=== PATIENT | female | born 1995 | race Caucasian/White ===

== ENCOUNTER 2016-04-11 | Emergency (ER) | payer MEDICAID | END 2016-04-11 18:06 | disposition left against medical advice (07) | DX: Z53.21 Procedure and treatment not carried out due to patient leaving prior to being seen by health care provider (principal) ==

== ENCOUNTER 2016-04-25 07:18 | Emergency (ER) | payer SELFPAY ==
[2016-04-25] MEDS ORDERED: ACYCLOVIR 200 MG CAPSULE PO STA (07:56)
[2016-04-25] MEDS ORDERED: IBUPROFEN 600 MG TABLET PO STA (07:56)
[2016-04-25] MEDS ORDERED: ACETAMINOPHEN 325 MG TABLET PO STA (07:56)
[2016-04-25] MEDS ORDERED: ACYCLOVIR 200 MG CAPSULE PO ONE (08:08)
[2016-04-25] MEDS ORDERED: IBUPROFEN 600 MG TABLET PO ONE (08:08)
[2016-04-25] MEDS ORDERED: ACETAMINOPHEN 325 MG TABLET PO ONE (08:09)
[2016-04-25] MEDS ORDERED: LIDOCAINE OINTMENT 5% 35.44 GM TUBE TOP STA (08:12)
[2016-04-25] MEDS ORDERED: LIDOCAINE OINTMENT 5% 35.44 GM TUBE ONE (08:16)
== END 2016-04-25 08:31 | disposition home or self-care (01) ==
DX: A60.04 Herpesviral vulvovaginitis (principal); R23.8 Other skin changes
CPT/HCPCS: 87210; 87491; 87529; 87591; 99283; A9270

== ENCOUNTER 2016-04-28 21:36 | Emergency (ER) | payer SELFPAY ==
[2016-04-28 22:15] LABS: BILIRUBIN,URINE NEGATIVE (NEGATIVE)
[2016-04-28 22:16] LABS: UA CHARGE (STRIP ONLY) YES; UR CULTURE IF IND NOT INDICATED
[2016-04-28 22:26] LABS: HCG UR QUAL NEGATIVE
--- NOTE | 2016-04-28 23:00 | ED Physician Documentation ---
PD HPI FEMALE - Stated complaint Stated Complaint: FEMALE - Chief complaint Chief Complaint: Abd Pain - History obtained from History obtained from: Patient - History of Present Illness Timing - onset: How many days ago (3) Timing - details: Constant Associated symptoms: Back pain, Vaginal pain, Genital sore/lesion Contributing factors: Sexually active Similar symptoms before: Has not had sx before Recently seen: Emergency Dept (3 days ago for same.) - Treatment prior to arrival Treatment prior to arrival: Acyclovir, Naproxen, and Benzocaine without relief. - Additional information Additional information: The patient is a 20-year-old female who presents with vaginal pain with sores at the external genitalia. She was seen here 3 days ago with similar presentation, and was started on acyclovir for presumed herpes infection. She has also been taking Naprosyn and applying benzocaine, without relief. She reports associated nausea, but denies vomiting. She denies fever. Her last menstrual period was one month ago. She denies history of similar symptoms in the past. She lives in [place], and is visiting her boyfriend here before he goes on deployment with the [employer]. Review of Systems Constitutional: denies: Fever Eyes: denies: Discharge Nose: denies: Congestion Throat: denies: Sore throat Cardiac: denies: Chest pain / pressure Respiratory: denies: Dyspnea, Cough GI: reports: Nausea. denies: Abdominal Pain, Vomiting : reports: LMP (one month ago), Other (Genital sores.). 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 - Past Surgical History Past Surgical History: Yes General: Appendectomy - Present Medications Home Medications: Ambulatory Orders Medication Instructions Recorded Confirmed Acyclovir 400 mg PO 5XD #30 tablet 04/25/16 04/28/16 Hydrocodone/Acetaminophen [[place] 1 each PO Q6H PRN #20 tablet 04/25/16 04/28/16 5-325 Tablet] Naproxen [Naprosyn] 500 mg PO BID #15 tablet 04/25/16 04/28/16 - Allergies Allergies/Adverse Reactions: Allergies Allergy/AdvReac Type Severity Reaction Status Date / Time diphenhydramine HCl * Allergy Edema Verified 04/28/16 22:03 [From Benadryl] - Social History Does the pt smoke?: No Smoking Status: Never smoker Does the pt drink ETOH?: No Does the pt have substance abuse?: No Additional Social History: Lives in [place], and is currently visiting here. - Immunizations Immunizations are current?: Yes PD ED PE NORMAL - Vitals Vital signs reviewed: Yes (normal) - General General: Alert and oriented X 3, Well developed/nourished - HEENT HEENT: Atraumatic, Pharynx benign - Neck Neck: No adenopathy, No JVD - Cardiac Cardiac: RRR, No murmur - Respiratory Respiratory: No respiratory distress, Clear bilaterally - Abdomen Abdomen: Soft, Non tender - Female Female : Outside Residential Sales Professional present - Back Back: No CVA TTP, No spinal TTP - Derm Derm: No rash - Extremities Extremities: No edema, No calf tenderness / cord - Neuro Neuro: Alert and oriented X 3, No motor deficit, Normal speech PD ED PE EXPANDED - Female Female : Skin lesions (Numerous small erosions in the perineum in the creases just lateral to the external genitalia bilaterally. The labial folds are without sores. There is no vaginal discharge.), Adnexal Tenderness, Cultures sent (Viral swabs from the skin erosions were sent to the lab and viral transport media.), Outside Residential Sales Professional present. No: Vaginal Bleeding, Vaginal Discharge Results - Vitals Vitals: Vital Signs - 24 hr 04/28/16 23:25 Temperature 36.5 C Heart Rate 68 Respiratory 16 Rate Blood Pressure 110/65 O2 Saturation 100 Oxygen O2 Source Room air - Labs Labs: Laboratory Tests 04/28/16 04/28/16 22:10 22:10 Urine Color YELLOW Urine Clarity CLEAR Urine pH 7.0 Ur Specific [place] 1.020 1.020 Urine Protein NEGATIVE Urine Glucose (UA) NEGATIVE Urine Ketones NEGATIVE Urine Occult Blood NEGATIVE Urine Nitrite NEGATIVE Urine Bilirubin NEGATIVE Urine Urobilinogen 0.2 (NORMAL) Ur Leukocyte Esterase NEGATIVE Ur Microscopic Review NOT INDICATED Urine Culture Comments NOT INDICATED Urine HCG, Qual NEGATIVE PD MEDICAL DECISION MAKING - ED course Complexity details: reviewed old records, reviewed results, re-evaluated patient , considered differential, d/w patient, d/w family ED course: The cutaneous erosions in the perineum next to the external genitalia are most likely of viral etiology. They are somewhat peculiar for herpes eruption, but that remains a consideration. Viral swab was obtained, and the results are pending. Treatment in the emergency department included application of lidocaine gel, which did help ease the discomfort. The remainder of the tube of lidocaine gel was dispensed with the patient. I discussed with her and her male process helper symptomatic treatment, follow-up for results of the viral swab, as well as potentially worrisome signs or symptoms that should prompt reevaluation in the emergency department. Departure - Departure Disposition: Home, Self Care Clinical Impression: Vesicular eruption, Herpes genitalis in women Condition: Stable Instructions: ED Herpes Simplex Virus Type 2 Comments: Use lidocaine gel to help anesthetize the vaginal sores. Keep the area clean, wash with warm soapy water at least twice daily. Continue taking acyclovir as previously prescribed. Follow up with your primary physician upon returning to [place]. Return to the emergency department if you develop increasing pain, or otherwise worsening symptoms. Discharge Date/Time: 04/28/16 23:25
[2016-04-28] MEDS ORDERED: LIDOCAINE JELLY 2% 5 ML TUBE TOP STA (23:09)
[2016-04-28] MEDS ORDERED: LIDOCAINE JELLY 2% 5 ML TUBE TOP ONE ×2 (23:10→23:18)
[2016-04-28 23:40] VITALS: BP 110/65
== END 2016-04-28 23:25 | disposition home or self-care (01) ==
LOC: ED 21:36
DX: A60.09 Herpesviral infection of other urogenital tract (principal); R23.8 Other skin changes
CPT/HCPCS: 81003; 81025; 99283; J3490; 81001; 87086

== ENCOUNTER 2016-05-13 12:38 | Emergency (ER) | payer SELFPAY | END 2016-05-13 14:27 | disposition home or self-care (01) | DX: S50.11XA Contusion of right forearm, initial encounter (principal); M79.1 Myalgia; X58.XXXA Exposure to other specified factors, initial encounter; Y93.54 Activity, bowling; Y92.39 Other specified sports and athletic area as the place of occurrence of the external cause; R03.0 Elevated blood-pressure reading, without diagnosis of hypertension ==

== ENCOUNTER 2016-06-01 21:26 | Emergency (ER) | payer OTHER ==
--- NOTE | 2016-06-01 22:35 | ED Physician Documentation ---
PD HPI ABD PAIN - Stated complaint Stated Complaint: ABD PX/POSS - Chief complaint Chief Complaint: Abd Pain - History obtained from History obtained from: Patient - History of Present Illness Timing - onset: Yesterday Timing - details: Gradual onset, Waxing and waning Pain level now: 4 Quality: Pain Location: RLQ Radiation: Other (no radiation) Improved by: Other (no ameliorating factors) Worsened by: Palpation Associated symptoms: Nausea. No: Fever, Vomiting, Diarrhea, Constipation Recently seen: Emergency Dept - Additional information Additional information: 7th [facility] ED visit past 6 months including 3 visits last month Review of Systems Constitutional: denies: Fever, Chills, Sweats Cardiac: reports: Reviewed and negative Respiratory: reports: Reviewed and negative GI: reports: Abdominal Pain, Nausea. 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 : None HEENT: None Psych: None Musculoskeletal: None Derm: None - Past Surgical History Past Surgical History: Yes General: Appendectomy - Present Medications Home Medications: Ambulatory Orders Medication Instructions Recorded Confirmed No Known Home Medications [No 05/13/16 06/01/16 Known Home Medications] - Allergies Allergies/Adverse Reactions: Allergies Allergy/AdvReac Type Severity Reaction Status Date / Time diphenhydramine HCl * Allergy Edema Verified 06/01/16 21:31 [From Benadryl] - Social History Does the pt smoke?: No Smoking Status: Never smoker Does the pt drink ETOH?: No Does the pt have substance abuse?: No - Immunizations Immunizations are current?: Yes PD ED PE NORMAL - Vitals Vital signs reviewed: Yes - General General: Alert and oriented X 3, No acute distress, Well developed/nourished - Cardiac Cardiac: RRR, No murmur - Respiratory Respiratory: No respiratory distress, Clear bilaterally - Abdomen Abdomen: Soft, Non tender - Back Back: No CVA TTP Results - Vitals Vitals: Vital Signs - 24 hr 06/01/16 06/02/16 21:28 02:26 Temperature 36.8 C Heart Rate 73 86 Respiratory 16 17 Rate Blood Pressure 119/73 115/68 O2 Saturation 100 100 Oxygen O2 Source Room air - Labs Labs: Laboratory Tests 06/01/16 06/01/1617 21:47 21:47 21:47 WBC 8.6 RBC 4.29 Hgb 12.6 Hct 36.5 L MCV 85.2 MCH 29.4 MCHC 34.5 RDW 14.5 Plt Count 209 MPV 8.5 Neut # 4.1 Lymph # 3.2 [place] # 0.7 Eos # 0.5 Baso # 0.1 Absolute Nucleated RBC 0.00 Nucleated RBCs 0.0 Sodium 135 Potassium 3.7 Chloride 103 Carbon Dioxide 26 Anion Gap 6.0 BUN 10 Creatinine 0.5 Estimated GFR (MDRD) 159 Glucose 98 Calcium 9.2 Total Bilirubin 0.3 AST 13 ALT 10 Alkaline Phosphatase 43 Total Protein 7.3 Albumin 4.2 Globulin 3.1 Albumin/Globulin Ratio 1.4 Lipase 21 L HCG, Quant 06111.00 Urine Color Urine Clarity Urine pH Ur Specific [place] Urine Protein Urine Glucose (UA) Urine Ketones Urine Occult Blood Urine Nitrite Urine Bilirubin Urine Urobilinogen Ur Leukocyte Esterase Ur Microscopic Review Urine Culture Comments 06/01/16 22:23 WBC RBC Hgb Hct MCV MCH MCHC RDW Plt Count MPV Neut # Lymph # [place] # Eos # Baso # Absolute Nucleated RBC Nucleated RBCs Sodium Potassium Chloride Carbon Dioxide Anion Gap BUN Creatinine Estimated GFR (MDRD) Glucose Calcium Total Bilirubin AST ALT Alkaline Phosphatase Total Protein Albumin Globulin Albumin/Globulin Ratio Lipase HCG, Quant Urine Color YELLOW Urine Clarity CLEAR Urine pH 6.0 Ur Specific [place] 1.020 Urine Protein NEGATIVE Urine Glucose (UA) NEGATIVE Urine Ketones NEGATIVE Urine Occult Blood NEGATIVE Urine Nitrite NEGATIVE Urine Bilirubin NEGATIVE Urine Urobilinogen 0.2 (NORMAL) Ur Leukocyte Esterase NEGATIVE Ur Microscopic Review NOT INDICATED Urine Culture Comments NOT INDICATED PD MEDICAL DECISION MAKING - ED course Complexity details: reviewed old records, reviewed results, re-evaluated patient , considered differential, d/w patient Departure - Departure Disposition: 01 Home, Self Care Clinical Impression: Threatened Condition: Good Instructions: ED Miscarriage Poss Follow-Up: Lore Hdez DO [Provider Admit Priv/Credential] - Discharge Date/Time: 06/02/16 02:45
[2016-06-01 22:43] LABS: BASOPHILS # (AUTO) 0.1 10^3/uL (0.0-0.1); BASOPHILS % (AUTO) 0.9 %; EOSINOPHILS # (AUTO) 0.5 10^3/uL (0.0-0.7); HCT - HEMATOCRIT 36.5 % (37.0-47.0); HGB - HEMOGLOBIN 12.6 g/dL (12.0-16.0); LYMPHOCYTES # (AUTO) 3.2 10^3/uL (1.5-3.5); MEAN CORPUSCULAR HEMOGLOBIN 29.4 pg (27.0-31.0); MEAN CORPUSCULAR HGB CONC 34.5 g/dL (32.0-36.0); MEAN CORPUSCULAR VOLUME 85.2 fL (81.0-99.0); MEAN PLATELET VOLUME 8.5 fL (7.9-10.8); MONOCYTES # (AUTO) 0.7 10^3/uL (0.0-1.0); MONOCYTES % (AUTO) 8.4 %; NEUTROPHILS # (AUTO) 4.1 10^3/uL (1.5-6.6); NEUTROPHILS % (AUTO) 47.7 %; RED BLOOD COUNT 4.29 10^6/uL (4.20-5.40); RED CELL DISTRIBUTION WIDTH 14.5 % (12.0-15.0); UNCORRECTED WHITE BLOOD COUNT 8.6 x10^3/uL; WHITE BLOOD COUNT 8.6 x10^3/uL (4.8-10.8)
[2016-06-01 22:48] LABS: ALBUMIN/GLOBULIN RATIO 1.4 (1.0-2.2); BILIRUBIN,TOTAL 0.3 mg/dL (0.2-1.0); CALCIUM 9.2 mg/dL (8.5-10.3); CREATININE 0.5 mg/dL (0.4-1.0); POTASSIUM 3.7 mmol/L (3.5-5.0); TOTAL PROTEIN 7.3 g/dL (6.7-8.2)
[2016-06-01 22:48] LABS: BILIRUBIN,URINE NEGATIVE (NEGATIVE)
[2016-06-01 22:52] LABS: UA CHARGE (STRIP ONLY) YES; UR CULTURE IF IND NOT INDICATED
[2016-06-01] MEDS ORDERED: ACETAMINOPHEN 325 MG TABLET PO ONE (23:43)
[2016-06-01] MEDS ORDERED: METOCLOPRAMIDE 10 MG/2 ML VIAL IVP ONE (23:43)
[2016-06-01] MEDS: ACETAMINOPHEN 325 MG TABLET PO STA (23:47)
[2016-06-01] MEDS: METOCLOPRAMIDE 10 MG/2 ML VIAL IVP STA (23:47)
--- NOTE | 2016-06-02 01:06 | Ultrasound Preliminary Report ---
Exam: US OB Transvaginal IMPRESSION: 1. Intrauterine gestational sac with no measurable pole. This may represent an anembryonic vers us early , correlation with serial beta-hCG and follow-up ultrasound in 7-10 days ezekiel ROBERTS SITE ID: [id number]
--- NOTE | 2016-06-02 01:07 | Ultrasound Preliminary Report ---
Exam: US OB First Trimester Please refer to combined report SITE ID: [id number]
--- NOTE | 2016-06-02 01:08 | Ultrasound Report ---
EXAM: FIRST TRIMESTER OBSTETRIC ULTRASOUND (Less than 11 weeks) EXAM DATE: 06/01/2016 11:41 PM. CLINICAL HISTORY: Right pelvic pain, . LMP: 04/08/2016. COMPARISONS: None. TECHNIQUE: Transabdominal and transvaginal ultrasound examination with static image documentation. CLINICAL DATES: EGA 7 weeks 5 days based on LMP. ASSESSMENT: Gestational Sac: Single intrauterine. Mean gestational sac diameter: 21 mm = 7 weeks 0 days. Embryo: No pole identified. Yolk sac: 3 mm. Early placenta: Not visible at this gestational age. Other: No perigestational fluid collection demonstrated. MATERNAL STRUCTURES: Uterus: Retroverted. Unremarkable. Cervix: Closed. Right Ovary: 3 x 2.7 x 2.3 cm, volume 7.4 cc. Unremarkable. Left Ovary: 2.8 x 1.5 x 1.5 cm, volume 3.3 cc. Unremarkable. Free Fluid: None. Other: None. IMPRESSION: 1. Intrauterine gestational sac with no measurable pole. This may represent an anembryonic vers us early , correlation with serial beta-hCG and follow-up ultrasound in 7-10 days ezekiel ROBERTS Referring Provider Line: [phone] SITE ID: [id number]
[2016-06-02 02:26] VITALS: BP 115/68
--- NOTE | 2016-06-02 17:08 | Ultrasound Report ---
Please refer to combined ultrasound report. Referring Provider Line: [phone] SITE ID: [id number]
== END 2016-06-02 02:45 | disposition home or self-care (01) ==
LOC: ED 21:26
DX: O20.0 Threatened abortion (principal); Z3A.00 Weeks of gestation of pregnancy not specified
CPT/HCPCS: 36415; 76801; 76817; 80053; 81001; 81003; 83690; 84702; 85025; 87086; 96374; 99283; 99284

== ENCOUNTER 2016-06-03 14:06 | Emergency (ER) | payer OTHER | END 2016-06-03 15:09 | disposition left against medical advice (07) | DX: R10.33 Periumbilical pain (principal); Z53.21 Procedure and treatment not carried out due to patient leaving prior to being seen by health care provider ==

== ENCOUNTER 2016-07-03 03:47 | Emergency (ER) | payer OTHER ==
[2016-07-03 03:54] VITALS: BP 123/72
== END 2016-07-03 04:42 | disposition left against medical advice (07) ==
LOC: ED 03:47
DX: Z53.21 Procedure and treatment not carried out due to patient leaving prior to being seen by health care provider (principal)
CPT/HCPCS: 99281

== ENCOUNTER 2016-07-14 00:36 | Emergency (ER) | payer OTHER ==
[2016-07-14 01:08] LABS: BILIRUBIN,URINE NEGATIVE (NEGATIVE)
[2016-07-14 01:18] LABS: UA CHARGE (STRIP ONLY) YES; UR CULTURE IF IND NOT INDICATED
--- NOTE | 2016-07-14 02:28 | ED Physician Documentation ---
PD HPI NVD - Stated complaint Stated Complaint: VOMITING,11W - Chief complaint Chief Complaint: Abd Pain - History obtained from History obtained from: Patient - History of Present Illness Timing - onset: Enter time (09:30), Today Timing - details: Gradual onset, Intermittant Pain level max: 0 Pain level now: 0 Associated symptoms: Fever Contributing factors: Other (11weeks pretnant) Improved by: No: Eating, Laying still, Vomiting, BM, Position, Meds Worsened by: No: Eating, Moving, Breathing, Position, Palpation Similar symptoms before: Has not had sx before Recently seen: Not recently seen Review of Systems Constitutional: denies: Fever Cardiac: reports: Reviewed and negative Respiratory: reports: Reviewed and negative GI: reports: Nausea, Vomiting. 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 : None HEENT: None Psych: None Musculoskeletal: None Derm: None - Past Surgical History Past Surgical History: Yes General: Appendectomy - Present Medications Home Medications: Ambulatory Orders Medication Instructions Recorded Confirmed Ondansetron HCl [Zofran] 4 mg PO Q6HR PRN #14 tablet 07/14/16 - Allergies Allergies/Adverse Reactions: Allergies Allergy/AdvReac Type Severity Reaction Status Date / Time diphenhydramine HCl * Allergy Edema Verified 07/14/16 00:39 [From Benadryl] - Social History Does the pt smoke?: No Smoking Status: Never smoker Does the pt drink ETOH?: No Does the pt have substance abuse?: No - Immunizations Immunizations are current?: Yes - POLST Patient has POLST: No PD ED PE NORMAL - Vitals Vital signs reviewed: Yes - General General: Alert and oriented X 3, No acute distress, Well developed/nourished - Cardiac Cardiac: RRR, No murmur - Respiratory Respiratory: No respiratory distress, Clear bilaterally - Abdomen Abdomen: Normal bowel sounds, Soft, Non tender, Non distended - Back Back: No CVA TTP - Derm Derm: Normal color, Warm and dry Results - Vitals Vitals: Oxygen O2 Source Room air - Labs Labs: Laboratory Tests 07/14/16 07/14/16 07/14/16 00:51 02:56 02:56 WBC 9.1 RBC 4.32 Hgb 13.1 Hct 38.1 MCV 88.2 MCH 30.2 MCHC 34.3 RDW 14.0 Plt Count 213 MPV 8.9 Neut # 5.4 Lymph # 2.5 [place] # 0.7 Eos # 0.4 Baso # 0.0 Absolute Nucleated RBC 0.00 Nucleated RBCs 0.0 Sodium 135 Potassium 3.7 Chloride 103 Carbon Dioxide 23 Anion Gap 9.0 BUN 8 Creatinine 0.4 Estimated GFR (MDRD) 206 Glucose 91 Calcium 8.8 Total Bilirubin < 0.2 L AST 12 ALT 10 Alkaline Phosphatase 36 L Total Protein 7.2 Albumin 3.7 Globulin 3.5 Albumin/Globulin Ratio 1.1 Lipase 19 L Urine Color YELLOW Urine Clarity CLEAR Urine pH 6.0 Ur Specific [place] 1.025 Urine Protein NEGATIVE Urine Glucose (UA) NEGATIVE Urine Ketones NEGATIVE Urine Occult Blood NEGATIVE Urine Nitrite NEGATIVE Urine Bilirubin NEGATIVE Urine Urobilinogen 0.2 (NORMAL) Ur Leukocyte Esterase NEGATIVE Ur Microscopic Review NOT INDICATED Urine Culture Comments NOT INDICATED - Rads (name of study) Pelvic US Radiology: Prelim report reviewed, See rad report PD MEDICAL DECISION MAKING - ED course Complexity details: reviewed old records, reviewed results, re-evaluated patient , considered differential, d/w patient Departure - Departure Disposition: 01 Home, Self Care Clinical Impression: Vomiting during Condition: Good Instructions: ED Nausea Vomiting Follow-Up: Mehdi Bingham MD [Primary Care Provider] - Prescriptions: Ondansetron HCl [Zofran] 4 mg PO Q6HR PRN #14 tablet PRN Reason: Nausea / Vomiting Discharge Date/Time: 07/14/16 06:19
[2016-07-14] MEDS ORDERED: ONDANSETRON 4 MG/2 ML VIAL IVP STA (02:49)
[2016-07-14] MEDS ORDERED: SODIUM CHLORIDE 0.9% 1,000 ML IV STA (02:49)
[2016-07-14] MEDS ORDERED: ONDANSETRON 4 MG/2 ML VIAL ONE (02:50)
[2016-07-14 03:10] LABS: BASOPHILS % (AUTO) 0.4 %; EOSINOPHILS # (AUTO) 0.4 10^3/uL (0.0-0.7); EOSINOPHILS % (AUTO) 4.5 %; HCT - HEMATOCRIT 38.1 % (37.0-47.0); HGB - HEMOGLOBIN 13.1 g/dL (12.0-16.0); LYMPHOCYTES # (AUTO) 2.5 10^3/uL (1.5-3.5); LYMPHOCYTES % (AUTO) 27.9 %; MEAN CORPUSCULAR HEMOGLOBIN 30.2 pg (27.0-31.0); MEAN CORPUSCULAR HGB CONC 34.3 g/dL (32.0-36.0); MEAN CORPUSCULAR VOLUME 88.2 fL (81.0-99.0); MEAN PLATELET VOLUME 8.9 fL (7.9-10.8); MONOCYTES # (AUTO) 0.7 10^3/uL (0.0-1.0); MONOCYTES % (AUTO) 7.5 %; NEUTROPHILS # (AUTO) 5.4 10^3/uL (1.5-6.6); NEUTROPHILS % (AUTO) 59.7 %; RED BLOOD COUNT 4.32 10^6/uL (4.20-5.40); UNCORRECTED WHITE BLOOD COUNT 9.1 x10^3/uL; WHITE BLOOD COUNT 9.1 x10^3/uL (4.8-10.8)
[2016-07-14 03:18] LABS: ALBUMIN/GLOBULIN RATIO 1.1 (1.0-2.2); BILIRUBIN,TOTAL < 0.2 mg/dL (0.2-1.0); BUN - BLOOD UREA NITROGEN 8 mg/dL (6-20); CALCIUM 8.8 mg/dL (8.5-10.3); CARBON DIOXIDE - CO2 23 mmol/L (21-32); CHLORIDE 103 mmol/L (101-111); CREATININE 0.4 mg/dL (0.4-1.0); GFR - MDRD 206 (>89); GLUCOSE 91 mg/dL (70-100); LIPASE 19 U/L (22-51); POTASSIUM 3.7 mmol/L (3.5-5.0); SODIUM 135 mmol/L (135-145); TOTAL PROTEIN 7.2 g/dL (6.7-8.2)
--- NOTE | 2016-07-14 05:49 | Ultrasound Preliminary Report ---
Exam: US OB First Trimester IMPRESSION: 1. Single viable intrauterine fetus with gestational age 12 weeks 2 days based on current ultrasound. 2. Perigestational fluid collection measuring about 10 mm. Note: Detailed anatomic survey at 18-22 weeks is recommended for all fetuses evaluated prior to 18 we eks, as some structural abnormalities may be inapparent at earlier gestational ages. [facility] SITE ID: [id number]
--- NOTE | 2016-07-14 05:52 | Ultrasound Report ---
EXAM: OBSTETRICAL ULTRASOUND, 11-14 weeks EXAM DATE: 07/14/2016 05:22 AM. CLINICAL HISTORY: , pelvic pain. LMP: 04/08/2016 according to prior report, 04/22/2016 according to information provided today. COMPARISON: 06/01/2016. TECHNIQUE: Transabdominal ultrasound examination with static image documentation. DATING: EGA 13 weeks 6 days with BREANNE 01/13/2017 based on prior ultrasound. EGA 12 weeks 2 days with BREANNE 01/24/2017 based on the current ultrasound. ASSESSMENT: Single viable intrauterine fetus. CRL (crown-rump length): 58 mm = 12 weeks 2 days. Cardiac activity: 167 beats per minute. Placenta: Anterior location. Amniotic fluid: Subjectively normal. Other: Perigestational fluid collection measuring approximately 10 mm. MATERNAL STRUCTURES: Uterus: Anteverted. Unremarkable. Cervix: Closed. Right ovary: 3.9 x 1.5 x 1.9 cm, volume 5.7 cc. Unremarkable. Left ovary: Not seen. Free fluid: None. Other: None. IMPRESSION: 1. Single viable intrauterine fetus with gestational age 12 weeks 2 days based on current ultrasound. 2. Perigestational fluid collection measuring about 10 mm. Note: Detailed anatomic survey at 18-22 weeks is recommended for all fetuses evaluated prior to 18 we eks, as some structural abnormalities may be inapparent at earlier gestational ages. [facility] Referring Provider Line: [phone] SITE ID: [id number]
[2016-07-14 06:19] VITALS: BP 111/62
== END 2016-07-14 06:19 | disposition home or self-care (01) ==
LOC: ED 00:36
DX: O21.0 Mild hyperemesis gravidarum (principal); Z3A.12 12 weeks gestation of pregnancy
CPT/HCPCS: 36415; 76801; 80053; 81001; 81003; 83690; 85025; 87086; 96374; 99283

== ENCOUNTER 2016-08-01 16:17 | Outpatient (CLI) | payer OTHER | END 2016-08-01 16:18 | disposition critical access hospital (66) | LOC: EMS 16:17 | PROVIDERS: ATTEND Surgery | DX: R55 Syncope and collapse (principal) | CPT/HCPCS: A0425; A0427 ==

== ENCOUNTER 2016-08-01 16:36 | Emergency (ER) | payer OTHER ==
[2016-08-01] MEDS ORDERED: SODIUM CHLORIDE 0.9% 1,000 ML IV ONE (16:48)
[2016-08-01] MEDS ORDERED: ONDANSETRON 4 MG/2 ML VIAL IVP STA (16:50)
--- NOTE | 2016-08-01 16:52 | ED Physician Documentation ---
History of Present Illness - Stated complaint Stated Complaint: SYNCOPE - Chief complaint Chief Complaint: General - History obtained from History obtained from: Patient - History of Present Illness Timing: Other (G2 at 14 weeks . Since last night she's had vomiting, fever, sore throat and cough. She had a syncopal episode with him in addition without injury at a store today. She is still nauseous. Denies abdominal pain , cramping, bleeding, or diarrhea. No urinary complaints.) Review of Systems Constitutional: reports: Fever, Chills, Fatigue Ears: denies: Ear pain Nose: denies: Rhinorrhea / runny nose, Congestion Throat: reports: Sore throat Respiratory: reports: Dyspnea, Cough GI: reports: Nausea, Vomiting. 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 : None HEENT: None Psych: None Musculoskeletal: None Derm: None - Past Surgical History Past Surgical History: Yes General: Appendectomy - Present Medications Home Medications: Ambulatory Orders Medication Instructions Recorded Confirmed Penicillin V Potassium 500 mg PO QID #40 tablet 08/01/16 - Allergies Allergies/Adverse Reactions: Allergies Allergy/AdvReac Type Severity Reaction Status Date / Time diphenhydramine HCl * Allergy Edema Verified 08/01/16 16:40 [From Benadryl] - Social History Does the pt smoke?: No Smoking Status: Never smoker Does the pt drink ETOH?: No Does the pt have substance abuse?: No - Immunizations Immunizations are current?: Yes - POLST Patient has POLST: No PD ED PE NORMAL - Vitals Vital signs reviewed: Yes - General General: Alert and oriented X 3, No acute distress - HEENT HEENT: PERRL, EOMI, Ears normal, Moist mucous membranes, Pharynx benign - Neck Neck: Supple, no meningeal sign, No bony TTP - Cardiac Cardiac: RRR, No murmur - Respiratory Respiratory: No respiratory distress, Other (diminished both bases.) - Abdomen Abdomen: Soft, Non tender - Back Back: No CVA TTP, No spinal TTP - Derm Derm: No rash - Extremities Extremities: No edema, No calf tenderness / cord - Neuro Neuro: Alert and oriented X 3, Normal speech - Psych Psych: Normal mood, Normal affect Results - Vitals Vitals: Vital Signs - 24 hr 08/01/16 08/01/16 16:37 17:12 Temperature 37.6 C H Heart Rate 87 91 Respiratory 17 17 Rate Blood Pressure 104/63 109/73 O2 Saturation 99 100 Oxygen O2 Source Room air - EKG (time done) 1701 Rate: Rate (enter#) (96) Rhythm: NSR [place]: Normal Intervals: Normal [place] QRS: Normal Ischemia: Normal ST segments Computer interpretation: Agree with computer - Labs Labs: Laboratory Tests 08/01/16 08/01/16 08/01/16 17:00 17:00 17:00 WBC 11.4 H RBC 4.00 L Hgb 12.3 Hct 35.0 L MCV 87.5 MCH 30.6 MCHC 35.0 RDW 13.4 Plt Count 173 MPV 8.5 Neut # 9.5 H Lymph # 0.6 L [place] # 0.8 Eos # 0.5 Baso # 0.1 Absolute Nucleated RBC 0.00 Nucleated RBCs 0.0 Sodium 135 Potassium 3.6 Chloride 105 Carbon Dioxide 22 Anion Gap 8.0 BUN < 5 L Creatinine 0.5 Estimated GFR (MDRD) 159 Glucose 90 Calcium 8.4 L Total Bilirubin 0.6 AST 13 ALT 11 Alkaline Phosphatase 35 L Total Protein 6.5 L Albumin 3.4 Globulin 3.1 Albumin/Globulin Ratio 1.1 Lipase 16 L Group A Strep Rapid POSITIVE H - Rads (name of study) 2v chest Radiology: EMP read contemporaneously (NAD) PD MEDICAL DECISION MAKING - ED course ED course: 20-year-old woman with URI symptoms and a syncopal episode today that sounds like it was due to dehydration. There is no evidence of issue with the or fetus. She is found to have strep throat with a normal chest x-ray , unremarkable labs given the syndrome, and normal EKG. She is administered Rocephin IV as well as IV fluids here. Departure - Departure Disposition: 01 Home, Self Care Clinical Impression: Dehydration, Strep pharyngitis Syncope Qualifiers: Syncope type: unspecified Qualified Code(s): R55 - Syncope and collapse Condition: Good Record reviewed to determine appropriate education?: Yes Instructions: ED Strep Pharyngitis Conf, ED Dehydration Prescriptions: Penicillin V Potassium 500 mg PO QID #40 tablet Comments: Call your doctor to arrange a follow up appointment. Make the next available appointment. In the interim return anytime if worse or if new symptoms develop.
[2016-08-01 17:09] LABS: BASOPHILS # (AUTO) 0.1 10^3/uL (0.0-0.1); BASOPHILS % (AUTO) 0.6 %; EOSINOPHILS # (AUTO) 0.5 10^3/uL (0.0-0.7); EOSINOPHILS % (AUTO) 4.3 %; HGB - HEMOGLOBIN 12.3 g/dL (12.0-16.0); LYMPHOCYTES # (AUTO) 0.6 10^3/uL (1.5-3.5); LYMPHOCYTES % (AUTO) 5.3 %; MEAN CORPUSCULAR HEMOGLOBIN 30.6 pg (27.0-31.0); MEAN CORPUSCULAR VOLUME 87.5 fL (81.0-99.0); MEAN PLATELET VOLUME 8.5 fL (7.9-10.8); MONOCYTES # (AUTO) 0.8 10^3/uL (0.0-1.0); MONOCYTES % (AUTO) 6.8 %; NEUTROPHILS # (AUTO) 9.5 10^3/uL (1.5-6.6); RED CELL DISTRIBUTION WIDTH 13.4 % (12.0-15.0); UNCORRECTED WHITE BLOOD COUNT 11.4 x10^3/uL; WHITE BLOOD COUNT 11.4 x10^3/uL (4.8-10.8)
[2016-08-01] MEDS ORDERED: ONDANSETRON 4 MG/2 ML VIAL ONE (17:10)
[2016-08-01 17:19] LABS: RAPID STREP SCREEN REAGENT QC YELLOW (YELLOW)
[2016-08-01 17:31] LABS: ALBUMIN/GLOBULIN RATIO 1.1 (1.0-2.2); BILIRUBIN,TOTAL 0.6 mg/dL (0.2-1.0); BUN - BLOOD UREA NITROGEN < 5 mg/dL (6-20); CALCIUM 8.4 mg/dL (8.5-10.3); CARBON DIOXIDE - CO2 22 mmol/L (21-32); CHLORIDE 105 mmol/L (101-111); CREATININE 0.5 mg/dL (0.4-1.0); GFR - MDRD 159 (>89); GLUCOSE 90 mg/dL (70-100); LIPASE 16 U/L (22-51); POTASSIUM 3.6 mmol/L (3.5-5.0); SODIUM 135 mmol/L (135-145); TOTAL PROTEIN 6.5 g/dL (6.7-8.2)
[2016-08-01] MEDS ORDERED: cefTRIAXone 1 GM in SODIUM CHLORIDE 0.9% MINIBAG 100 ML IV STA (17:49)
[2016-08-01] MEDS ORDERED: SODIUM CHLORIDE 0.9% MINIBAG 100 ML IV ONE (17:52)
[2016-08-01] MEDS ORDERED: cefTRIAXone 1 GM VIAL ONE (17:52)
--- NOTE | 2016-08-01 17:53 | XRAY Preliminary Report ---
Exam: XR Chest 2 View PA/LAT IMPRESSION: Normal 2-view chest radiography. [facility] SITE ID: [id number]
--- NOTE | 2016-08-01 17:56 | XRAY Report ---
EXAM: CHEST RADIOGRAPHY EXAM DATE: 08/01/2016 05:40 PM. CLINICAL HISTORY: Shield abd, cough, fever, abn breath sounds. COMPARISON: None. TECHNIQUE: 2 views. FINDINGS: Lungs/Pleura: No focal opacities evident. No pleural effusion. No pneumothorax. Normal volumes. Mediastinum: Heart and mediastinal contours are unremarkable. Other: None. IMPRESSION: Normal 2-view chest radiography. [facility] Referring Provider Line: [phone] SITE ID: [id number]
[2016-08-01] MEDS ORDERED: ACETAMINOPHEN 325 MG TABLET PO STA (18:30)
[2016-08-01] MEDS ORDERED: ACETAMINOPHEN 500 MG TABLET PO ONE (18:35)
[2016-08-01] MEDS ORDERED: ACETAMINOPHEN 325 MG TABLET PO ONE (18:39)
[2016-08-01 18:47] VITALS: BP 99/52
== END 2016-08-01 19:15 | disposition home or self-care (01) ==
LOC: EDUNIT# → ED 16:36
DX: E86.0 Dehydration (principal); O26.892 Other specified pregnancy related conditions, second trimester; R55 Syncope and collapse; J02.0 Streptococcal pharyngitis; Z3A.14 14 weeks gestation of pregnancy
CPT/HCPCS: 36415; 71020; 80053; 83690; 85025; 87430; 93005; 93010; 96361; 96365; 96375; 99284; A9270

== ENCOUNTER 2016-10-11 20:53 | Outpatient (CLI) | payer OTHER ==
[2016-10-11 22:15] LABS: BILIRUBIN,URINE NEGATIVE (NEGATIVE)
[2016-10-11 22:28] VITALS: BP 102/62
[2016-10-11 22:35] LABS: UA CHARGE (STRIP ONLY) YES; UR CULTURE IF IND NOT INDICATED
== END 2016-10-11 22:50 | disposition home or self-care (01) ==
LOC: WFO 20:53 → FBP 20:55 → WFO 22:50
PROVIDERS: ATTEND Obstetrics & Gynecology
DX: O99.89 Other specified diseases and conditions complicating pregnancy, childbirth and the puerperium (principal); M89.8X8 Other specified disorders of bone, other site; M53.3 Sacrococcygeal disorders, not elsewhere classified; Z3A.25 25 weeks gestation of pregnancy
CPT/HCPCS: 81001; 81003; 82731; 87086; 99213

== ENCOUNTER 2016-11-01 20:27 | Emergency (ER) | payer OTHER ==
--- NOTE | 2016-11-01 20:51 | ED Physician Documentation ---
PD HPI HEENT - Stated complaint Stated Complaint: EAR PX/27WK OB - Chief complaint Chief Complaint: Heent - History obtained from History obtained from: Patient - History of Present Illness Timing - onset: Yesterday Timing - details: Gradual onset, Still present Location: Right ear (pain and decreased hearing.), Nose (some congestion today) Associated symptoms: Congestion. No: Fever, Rhinorrhea, Facial swelling Similar symptoms before: Has not had sx before Recently seen: Clinic (OB clinic with regular visits.) Review of Systems Constitutional: denies: Fever, Chills Ears: reports: Loss of hearing, Ear pain (right), Other (she does use qtips regularly). denies: Drainage/discharge Nose: reports: Congestion. denies: Rhinorrhea / runny nose Throat: denies: Sore throat Respiratory: denies: Cough : denies: Discharge, Vaginal bleeding Skin: denies: Rash, Lesions PD PAST MEDICAL HISTORY - Past Medical History Cardiovascular: None Respiratory: None Neuro: None Endocrine/Autoimmune: None GI: None HABILITATION WORKER: None : None HEENT: None Psych: None Musculoskeletal: None Derm: None - Past Surgical History Past Surgical History: Yes General: Appendectomy - Present Medications Home Medications: Ambulatory Orders Medication Instructions Recorded Confirmed Cephalexin [Keflex] 500 mg PO TID #15 capsule 11/01/16 Vit Calc,Iron,Folic 1 tab PO DAILY 11/01/16 11/01/16 [ Vitamins] - Allergies Allergies/Adverse Reactions: Allergies Allergy/AdvReac Type Severity Reaction Status Date / Time diphenhydramine HCl * Allergy Edema Verified 11/01/16 20:30 [From Benadryl] - Social History Does the pt smoke?: No Smoking Status: Never smoker Does the pt drink ETOH?: No Does the pt have substance abuse?: No - Immunizations Immunizations are current?: Yes - POLST Patient has POLST: No PD ED PE NORMAL - Vitals Vital signs reviewed: Yes - General General: Alert and oriented X 3, No acute distress, Well developed/nourished - HEENT HEENT: Moist mucous membranes, Pharynx benign. No: Ears normal (left is okay; right showing redness and swelling of ear canal. TM appears normal though harder to see with canal swelling. No draiange. ) - Neck Neck: Supple, no meningeal sign, No adenopathy - Derm Derm: Normal color, Warm and dry, No rash Results - Vitals Vitals: Oxygen O2 Source Room air PD MEDICAL DECISION MAKING - ED course Complexity details: considered differential (appears ear canal infection, though some cellulitic swelling of canal. Bedside US shows normal IUP with good movement and heart rate. ), d/w patient Departure - Departure Disposition: 01 Home, Self Care Clinical Impression: Cellulitis of right ear canal Otitis externa Qualifiers: Otitis externa type: unspecified type Chronicity: acute Laterality: right Qualified Code(s): H60.501 - Unspecified acute noninfective otitis externa, right ear Condition: Stable Record reviewed to determine appropriate education?: Yes Instructions: ED Otitis Externa Follow-Up: NEVAEH Pimentel [Provider Group] Prescriptions: Cephalexin [Keflex] 500 mg PO TID #15 capsule Comments: Use the antibiotic eardrops 2-3 drops in the right ear 4 times a day for the next 4-5 days. Cephalexin oral antibiotic 3 times a day for the next 5 days as well. These are both to get at the ear canal infection and the infection of the tissue of the canal. Use Tylenol if needed for pain every 6 hours. Add hydrocodone if needed. For the ear pain you can also use the proparacaine numbing drops whenever needed if they are helpful. Recheck if not better over the next 2-3 days. Discharge Date/Time: 11/01/16 21:48
[2016-11-01] MEDS ORDERED: ACETAMINOPHEN 325 MG TABLET PO STA (21:23)
[2016-11-01] MEDS ORDERED: CEPHALEXIN 250 MG CAPSULE PO STA (21:23)
[2016-11-01] MEDS ORDERED: HYDROcod/ACET 5/325 Prepack 6 PO ONE ×2 (21:23→21:33)
[2016-11-01] MEDS ORDERED: NEOMYCIN/POLYMYX/HC OTIC DROPS RIGHTEAR STA (21:23)
[2016-11-01] MEDS ORDERED: CEPHALEXIN 250 MG CAPSULE PO ONE ×2 (21:32→21:43)
[2016-11-01] MEDS ORDERED: ACETAMINOPHEN 325 MG TABLET PO ONE (21:32)
[2016-11-01] MEDS ORDERED: NEOMYCIN/POLYMYX/HC OTIC DROPS ONE (21:33)
[2016-11-01 21:51] VITALS: BP 114/68
== END 2016-11-01 21:48 | disposition home or self-care (01) ==
LOC: ED 20:27
DX: O99.89 Other specified diseases and conditions complicating pregnancy, childbirth and the puerperium (principal); H60.11 Cellulitis of right external ear; H60.501 Unspecified acute noninfective otitis externa, right ear; Z3A.27 27 weeks gestation of pregnancy
CPT/HCPCS: 99283; A9270

== ENCOUNTER 2016-11-17 15:56 | Observation (INO) | payer OTHER ==
[2016-11-17 19:18] LABS: BASOPHILS % (AUTO) 0.4 %; EOSINOPHILS # (AUTO) 0.4 10^3/uL (0.0-0.7); EOSINOPHILS % (AUTO) 4.2 %; HCT - HEMATOCRIT 31.4 % (37.0-47.0); HGB - HEMOGLOBIN 10.4 g/dL (12.0-16.0); LYMPHOCYTES # (AUTO) 1.8 10^3/uL (1.5-3.5); LYMPHOCYTES % (AUTO) 19.2 %; MEAN CORPUSCULAR VOLUME 84.8 fL (81.0-99.0); MONOCYTES # (AUTO) 0.9 10^3/uL (0.0-1.0); MONOCYTES % (AUTO) 9.9 %; NEUTROPHILS # (AUTO) 6.1 10^3/uL (1.5-6.6); NEUTROPHILS % (AUTO) 66.3 %; RED CELL DISTRIBUTION WIDTH 12.5 % (12.0-15.0); UNCORRECTED WHITE BLOOD COUNT 9.2 x10^3/uL; WHITE BLOOD COUNT 9.2 x10^3/uL (4.8-10.8)
[2016-11-17] MEDS ORDERED: ONDANSETRON 4 MG/2 ML VIAL IVP PRN (19:53)
[2016-11-17] MEDS ORDERED: SODIUM CHLORIDE FLUSH 0.9% 10 ML SYRINGE IVP PRN (19:53)
[2016-11-17] MEDS ORDERED: RHO(D) IMMUNE GLOBULIN 300 MCG SYRINGE IM SCH (19:56)
--- NOTE | 2016-11-17 20:52 | Ultrasound Preliminary Report ---
Exam: US OB Limited IMPRESSION: 1. Bryant live intrauterine with gestational age 29 weeks, 6 days based on established E DD. 2. Posterior placenta. No sonographic evidence of placental abruption noting that placental abruption can be sonographically occult. If further evaluation is warranted then follow up ultrasound recommen ded. RADIMeme SITE ID: [id number]
--- NOTE | 2016-11-17 21:04 | Ultrasound Report ---
EXAM: LIMITED OBSTETRICAL ULTRASOUND EXAM DATE: 11/17/2016 08:31 PM. CLINICAL HISTORY: Abdominal trauma. COMPARISON: 07/14/2016. 06/01/2016. TECHNIQUE: Real-time sonographic evaluation of the fetus performed by the hay buckler. Multiple repre sentative static images were saved for review. DATING: Established EGA 29 weeks, 6 days with BREANNE 01/27/2017 based on LMP of 04/22/2016. GENERAL EVALUATION Bryant . Cardiac activity: 140 bpm. movement: Visualized. Presentation: Cephalic. No sonographic evidence of placental abruption. Placenta: Posterior position. Amniotic fluid: Normal. ANALIA 18.9 cm. MVP 5.7 cm. ANATOMY anatomic assessment was not performed on today's study due to the emergent nature of the study. biometry: Biparietal diameter: 8.2 cm, 33 weeks, 0 days. Head circumference: 27.3 cm, 29 weeks, 6 days. Abdominal circumference 24.8 cm, 29 weeks, 0 days. Femur length: 5.7 cm, 29 weeks, 5 days. Estimated gestational age 30 weeks, 0 days. Estimated weight 1419 g, 46.2%. MATERNAL STRUCTURES Not assessed on today's study. IMPRESSION: 1. Bryant live intrauterine with gestational age 29 weeks, 6 days based on established E DD. 2. Posterior placenta. No sonographic evidence of placental abruption noting that placental abruption can be sonographically occult. If further evaluation is warranted then follow up ultrasound recommen ded. ROBERTS Referring Provider Line: [phone] SITE ID: [id number]
[2016-11-17] MEDS: ACETAMINOPHEN 325 MG TABLET PO SCH (21:22)
[2016-11-17] MEDS: SODIUM CHLORIDE FLUSH 0.9% 10 ML SYRINGE IVP SCH (21:24)
--- NOTE | 2016-11-17 23:50 | HISTORY & PHYSICAL EXAMINATION ---
DATE OF ADMISSION: 11/17/2016 IDENTIFICATION: A 21-year-old G2, P1-0-0-1 with a 29 and 6/7 week intrauterine , EDC is 01/27/2017 changed by a 8-week ultrasound. HISTORY OF PRESENT ILLNESS: The patient presents today to [facility] with complaints of cramping in her abdomen. The patient states that she did call the [facility] who instructed her to go to either [facility] in [place] or here at [facility] in [place]. The patient's story started on 11/15/2016. Apparently she was at the [facility] in [place] when she had acute nausea, vomiting, and diarrhea. She left the movie and proceeded to go to the restroom. After she freshened up, she went back to the movie. Ten minutes after she resumed the movie again she felt nausea, vomiting and diarrhea. She went to the restroom and felt that she passed out. Per patient report no one saw the syncopal episode, but she was found by the inbound sales manager who thinks she might have passed out for 45 minutes. It is unclear if she had any direct trauma to her head or abdomen. She was told the thought that the inbound sales manager thought she had hit her abdomen on the toilet. The patient was then transported to the nearest hospital, which was [facility] directly to the OB unit. She did not get seen by the emergency department for trauma eval. The patient was what it sounds like admitted to observation. We were only able to obtain laboratory and ultrasound records from [facility] as they are currently changing over to the [facility] system. By the patient's account they monitored her and did an ultrasound and thought she had a placental abruption. The patient states she left against medical advice on Friday because she did not want to stay any longer and also that she felt she needed to take care of her 2-year-old at home whose name is Kev Tavares." The patient today is accompanied by her , Cristofer, who is in the . The [facility] records show that Isac Subramanian is her sponsor. When questioned who was taking care of her son the patient told me that her grandmother came in from [place] and is currently watching Kevin, but she does not have a vehicle to get around. Isac is supposed to be at work today, but he is here with her and is expected to work tomorrow. When questioned what brought the patient to the hospital is that she has been noticing a different pain that started yesterday. The pain is a cramping sensation in the lower anterior abdomen all the way down to the suprapubic area. She states that this pain is intermittent but has been getting worse. She states that the pain is at its worst 5/10. Currently, the pain is much improved. The patient does feel that she has some soreness in her right subchondral border. With regard to the she states that this baby boy is moving well, although he had decreased movement yesterday and earlier today. She denies any loss of fluid and states that she had some spotting. Today the bleeding is only spotting at its worst. PAST MEDICAL HISTORY: None. She denies hypertension, diabetes, or thyroid disease. PAST SURGICAL HISTORY: She had appendectomy in 2012. ALLERGIES: TO BENADRYL WHEN SHE SWELLS. MEDICATIONS: 1. vitamins. 2. Iron. 3. Hydrocodone, which states is for back pain secondary to the . She has been given this medication at [facility] as well as by her title one teacher, Dr. Mehdi Bingham. SOCIAL HISTORY: She denies any tobacco, alcohol or illicit drug use. She identifies her ethnicity as . She has a 2-year-old Kev Kevin, who mainly goes by the name Kevin. This is a male fetus with anticipated name of Isac Subramanian in [facility] who is her and sponsor. 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 Isac is not Kevin's biological father. PAST MEDICAL HISTORY: One term vaginal delivery of son Kevin. She had a low lying placenta with that and had bleeding issues throughout the . She did not require a blood transfusion at that time. PAST GYNECOLOGIC HISTORY: The patient states that she had her first herpetic outbreak in December 2015 after she got the virus from her current , Isac. FAMILY HISTORY: Noncontributory. REVIEW OF SYSTEMS: She is currently nauseated, but denies any vomiting, fevers, chills or diarrhea. Negative unless otherwise stated. OBJECTIVE: VITAL SIGNS: Temperature is 98.8, heart rate 88, blood pressure 108/65, respiratory rate 20, and O2 saturation 100. GENERAL: The patient is a well-developed, well-nourished female in no apparent distress. She is alert and oriented x3. HEENT: Within normal limits. The patient currently does have braces. CARDIOVASCULAR: Rate is regular, no murmurs or rubs. PULMONARY: Lungs clear to auscultation bilaterally. ABDOMEN: Right anterior subchondral border is tender to palpation. Abdomen is gravid, nontender. There is no ecchymosis or mary jane bleeding anywhere. Skin is intact. No obvious lacerations. heart tones are currently with a baseline of 140s, reactive and a good long-term variability, category 1 tracing. There are no mary jane contractions, although there may be some amount of uterine irritability. There were no decelerations. [facility] records show she is A negative, antibody screen is negative, rubella immune, RPR nonreactive, hepatitis B surface antigen was not noted. HIV is negative. GC and chlamydia are both negative. [facility] records from 11/16/2016 show a normal urinalysis with a few epithelial cells, white count 11.2, H and H 10.5 and 32.1, platelets 208, sodium is 137, potassium 4.0, chloride 100, CO2 is 22, BUN 5, creatinine 0.38, glucose is 84, calcium 8.6, total bilirubin 0.2, AST 11, ALT 8. Total protein 7.4, albumin 3.7 , alkaline phosphatase 81. On 11/16/2016 limited OB ultrasound shows a single, living intrauterine gestation in the vertex presentation. Placenta position is left posterior without previa. There are prominent retroplacental vessels. There is questionable decreased vascularity than expected, although appearance appears more organized than expected for actual hematoma and some internal flow. Amniotic fluid index is 14.1. heart rate 138 beats per minute. Maternal cervical canal is 3.2 cm long, normal ANALIA. ASSESSMENT: 1. A 21-year-old G2, P1-0-0-1 with a 29 and 6/7 week intrauterine . 2. Status post abdominal trauma on 11/15/2016. 3. Currently stable maternal and status. 4. Ultrasound from [facility] is inconclusive for placenta abruption though prominent retroplacental vessels are seen. 5. Rh negative. PLAN: 1. Will most likely be admit to observation though will wait for ultrasound results. 2. Will get a Kleihauer-Behtke and give RhoGAM as appropriate. 3. The patient will need to do her 1-hour GTT as I do not show records for that. 4. The patient will need to be on acyclovir HSV prophylaxis at 36 weeks if not sooner if symptomatic. 5. Should the patient show signs of abruption or labor will need to start betamethasone series as well as magnesium sulfate for neuro protection. 6. Continuous monitoring. 7. GBS, should we feel that the patient is at risk for delivery will need to transfer the patient if it gets to that point 8. We will confer with the emergency department with regards to trauma workup given she was found after a likely syncopal episode. JOB #: [id number] EXT JOB #:[id number] VALDE[facility]
[2016-11-18] MEDS: ZOLPIDEM 5 MG TABLET PO PRN ×2 (00:27→00:37)
[2016-11-18] MEDS: ACETAMINOPHEN 325 MG TABLET PO SCH ×2 (08:00→15:26)
[2016-11-18] MEDS: SODIUM CHLORIDE FLUSH 0.9% 10 ML SYRINGE IVP SCH (08:01)
[2016-11-18] MEDS ORDERED: PRENATAL VITAMIN TABLET PO SCH (09:00)
--- NOTE | 2016-11-18 10:02 | PROVIDER PROGRESS NOTE ---
Subjective - Prog Note Date Prog Note Date: 11/18/16 Prog Note Time: 10:00 - Subjective Pt reports feeling: Improved Subjective: Patient sleeping in bed with with her. Grandmother lying in the visitor' s bed and son Kevin sitting on the bed with grandmother. States that the baby is moving well. Denies vaginal bleeding. No loss of fluid. Patient reports now pain mostly in her low back bilaterally. Objective - Vital Signs/Intake & Output Reviewed Vital Signs: Yes Vital Signs: Vital Signs x48h Temp Pulse Resp BP Pulse Ox 11/18/16 08:00 97.9 F 97 18 106/65 100 Intake & Output: Intake & Output 11/15/16 11/16/16 11/17/16 11/18/16 23:59 23:59 23:59 23:59 Intake Total 1904 Balance 1904 - Objective General Appearance: positive: No acute distress Eyes Bilateral: positive: Normal inspection Neurologic/Psychiatric: positive: Oriented x3, Mood/affect nml (Appears to be quite comfortable. No writhing in pain or moving to find a comfortable position. ) - Lab Results Fish Bones: 11/17/16 19:02 Other Labs: Lab Results x24hrs 11/17/16 11/17/16 11/17/16 Range/Units 21:46 19:02 19:02 WBC 9.2 (4.8-10.8) x10^3/uL RBC 3.70 L (4.20-5.40) 10^6/uL Hgb 10.4 L (12.0-16.0) g/dL Hct 31.4 L (37.0-47.0) % MCV 84.8 (81.0-99.0) fL MCH 28.0 (27.0-31.0) pg MCHC 33.0 (32.0-36.0) g/dL RDW 12.5 (12.0-15.0) % Plt Count 198 (130-450) 10^3/uL MPV 9.0 (7.9-10.8) fL Neut # 6.1 (1.5-6.6) 10^3/uL Lymph # 1.8 (1.5-3.5) 10^3/uL Fleming # 0.9 (0.0-1.0) 10^3/uL Eos # 0.4 (0.0-0.7) 10^3/uL Baso # 0.0 (0.0-0.1) 10^3/uL Absolute Nucleated RBC 0.00 x10^3/uL Nucleated RBC % 0.0 /100WBC Urine Opiates Screen NEGATIVE (NEGATIVE) Ur Oxycodone Screen NEGATIVE (NEGATIVE) Urine Methadone Screen NEGATIVE (NEGATIVE) Ur Propoxyphene Screen NEGATIVE (NEGATIVE) Ur Barbiturates Screen NEGATIVE (NEGATIVE) Ur Tricyclics Screen NEGATIVE (NEGATIVE) Ur Phencyclidine Scrn NEGATIVE (NEGATIVE) Ur Amphetamine Screen NEGATIVE (NEGATIVE) U Methamphetamines Scrn NEGATIVE (NEGATIVE) U Benzodiazepines Scrn NEGATIVE (NEGATIVE) Urine Cocaine Screen NEGATIVE (NEGATIVE) U Cannabinoids Screen NEGATIVE (NEGATIVE) Blood Type A NEGATIVE Maternal Bleed NEGATIVE (NEGATIVE) Assessment/Plan - Problem List (1) Abdominal pain, acute, left lower quadrant Impression: 21 yo with a 30w0d IUP. S/p syncopal episode causing likely fall to abdomen. No S/s of placental abruption. (FHT's reactive and category 1. No decelerations. No contractions.) Likely muscle skeletal pain; will do trial of muscle relaxant. Discharge to home later today. Patient will need to follow up with [facility] OBDr. Bingham.
[2016-11-18] MEDS: BACLOFEN 10 MG TABLET PO SCH ×2 (10:20→16:40)
--- NOTE | 2016-11-18 13:02 | PROVIDER PROGRESS NOTE ---
Subjective - Prog Note Date Prog Note Date: 11/18/16 Prog Note Time: 12:59 - Subjective Pt reports feeling: Worse Subjective: Patient states that her back pain is better with the baclofen. She did, however , note having cramping in LLQ and RLQ that started at 12:00. Good FM, no VB nor LOF. Objective - Vital Signs/Intake & Output Reviewed Vital Signs: Yes Vital Signs: Vital Signs x48h Temp Pulse Resp BP Pulse Ox 11/18/16 08:00 97.9 F 97 18 106/65 100 Intake & Output: Intake & Output 11/15/16 11/16/16 11/17/16 11/18/16 23:59 23:59 23:59 23:59 Intake Total 1905 Balance 1905 - Objective General Appearance: positive: No acute distress Abdomen: positive: Non-tender (Soft, nontender. No peritoneal signs. No contraction felt on palpation) Back: positive: Nml inspection (No flank nor CVAT) Neurologic/Psychiatric: positive: Oriented x3 (Flat affect. Does not appear in pain) - Lab Results Fish Bones: 11/17/16 19:02 Other Labs: Lab Results x24hrs 11/17/16 11/17/16 11/17/16 Range/Units 21:46 19:02 19:02 WBC 9.2 (4.8-10.8) x10^3/uL RBC 3.70 L (4.20-5.40) 10^6/uL Hgb 10.4 L (12.0-16.0) g/dL Hct 31.4 L (37.0-47.0) % MCV 84.8 (81.0-99.0) fL MCH 28.0 (27.0-31.0) pg MCHC 33.0 (32.0-36.0) g/dL RDW 12.5 (12.0-15.0) % Plt Count 198 (130-450) 10^3/uL MPV 9.0 (7.9-10.8) fL Neut # 6.1 (1.5-6.6) 10^3/uL Lymph # 1.8 (1.5-3.5) 10^3/uL Sterling # 0.9 (0.0-1.0) 10^3/uL Eos # 0.4 (0.0-0.7) 10^3/uL Baso # 0.0 (0.0-0.1) 10^3/uL Absolute Nucleated RBC 0.00 x10^3/uL Nucleated RBC % 0.0 /100WBC Urine Opiates Screen NEGATIVE (NEGATIVE) Ur Oxycodone Screen NEGATIVE (NEGATIVE) Urine Methadone Screen NEGATIVE (NEGATIVE) Ur Propoxyphene Screen NEGATIVE (NEGATIVE) Ur Barbiturates Screen NEGATIVE (NEGATIVE) Ur Tricyclics Screen NEGATIVE (NEGATIVE) Ur Phencyclidine Scrn NEGATIVE (NEGATIVE) Ur Amphetamine Screen NEGATIVE (NEGATIVE) U Methamphetamines Scrn NEGATIVE (NEGATIVE) U Benzodiazepines Scrn NEGATIVE (NEGATIVE) Urine Cocaine Screen NEGATIVE (NEGATIVE) U Cannabinoids Screen NEGATIVE (NEGATIVE) Blood Type A NEGATIVE Maternal Bleed NEGATIVE (NEGATIVE) - Other Results/Comments Other Results/Comments: FHT's 140's with good LTV. Reactive and category 1. No decels. [place] does not show mary jane contractions, possibly uterine irritability. Assessment/Plan - Problem List (1) Abdominal pain, acute, left lower quadrant Impression: 21 yo with a 30w0d IUP S/p fall onto the abdomen 11/15/2016 Improved back muscleskeletal pain Complaints of cramping. Will continue to monitor for placenta abruption. Currently no signs of abruption.
[2016-11-18 13:49] VITALS: BP 97/50
--- NOTE | 2016-11-18 17:09 | PROVIDER PROGRESS NOTE ---
Subjective - Prog Note Date Prog Note Date: 11/18/16 Prog Note Time: 17:07 - Subjective Pt reports feeling: Improved Subjective: Patient sitting in bed. Visiting with a friend. Verbalizes her desire to go home. States the baby is moving well. Denies vaginal bleeding or loss of fluid. Pain and cramping improved. Objective - Vital Signs/Intake & Output Reviewed Vital Signs: Yes Vital Signs: Vital Signs x48h Temp Pulse Resp BP Pulse Ox 11/18/16 13:01 97/50 L 11/18/16 13:00 98.8 F 80 18 105/49 L 99 Intake & Output: Intake & Output 11/15/16 11/16/16 11/17/16 11/18/16 23:59 23:59 23:59 23:59 Intake Total 1904 Balance 190 - Objective General Appearance: positive: No acute distress Abdomen: positive: Non-tender (Gravid, nontender. No contractions palpated. No ecchymosis.) - Lab Results Fish Bones: 11/17/16 19:02 Other Labs: Lab Results x24hrs 11/17/16 11/17/16 11/17/16 Range/Units 21:46 19:02 19:02 WBC 9.2 (4.8-10.8) x10^3/uL RBC 3.70 L (4.20-5.40) 10^6/uL Hgb 10.4 L (12.0-16.0) g/dL Hct 31.4 L (37.0-47.0) % MCV 84.8 (81.0-99.0) fL MCH 28.0 (27.0-31.0) pg MCHC 33.0 (32.0-36.0) g/dL RDW 12.5 (12.0-15.0) % Plt Count 198 (130-450) 10^3/uL MPV 9.0 (7.9-10.8) fL Neut # 6.1 (1.5-6.6) 10^3/uL Lymph # 1.8 (1.5-3.5) 10^3/uL [place] # 0.9 (0.0-1.0) 10^3/uL Eos # 0.4 (0.0-0.7) 10^3/uL Baso # 0.0 (0.0-0.1) 10^3/uL Absolute Nucleated RBC 0.00 x10^3/uL Nucleated RBC % 0.0 /100WBC Urine Opiates Screen NEGATIVE (NEGATIVE) Ur Oxycodone Screen NEGATIVE (NEGATIVE) Urine Methadone Screen NEGATIVE (NEGATIVE) Ur Propoxyphene Screen NEGATIVE (NEGATIVE) Ur Barbiturates Screen NEGATIVE (NEGATIVE) Ur Tricyclics Screen NEGATIVE (NEGATIVE) Ur Phencyclidine Scrn NEGATIVE (NEGATIVE) Ur Amphetamine Screen NEGATIVE (NEGATIVE) U Methamphetamines Scrn NEGATIVE (NEGATIVE) U Benzodiazepines Scrn NEGATIVE (NEGATIVE) Urine Cocaine Screen NEGATIVE (NEGATIVE) U Cannabinoids Screen NEGATIVE (NEGATIVE) Blood Type A NEGATIVE Maternal Bleed NEGATIVE (NEGATIVE) Assessment/Plan - Problem List (1) Abdominal pain, acute, left lower quadrant Impression: Improved abdominal pain. No S/s of placenta abruption after prolonged monitoring. Limited OB U/S also not revealing a mary jane abruption. Discharge to home. Patient to follow up with Dr. Bingham this week. Patient will need to be seen if vaginal bleeding or painful contractions occur. Abruption precautions. Discharge Plan Disposition: 01 Home, Self Care Condition: Good Diet: Regular Activity Restrictions: Activity as Tolerated Shower Restrictions: No Driving Restrictions: No Weight Bearing: Full Weight No Smoking: If you smoke, Please STOP! Call for help. Follow-up with: Mehdi Bingham MD [Primary Care Provider] -
== END 2016-11-18 18:00 | disposition home or self-care (01) ==
LOC: WFO 15:56 → FBP 15:58 → WFO 19:52 → FBP 19:53
PROVIDERS: ADMIT Obstetrics & Gynecology; ATTEND Obstetrics & Gynecology
DX: O99.89 Other specified diseases and conditions complicating pregnancy, childbirth and the puerperium (principal); R10.32 Left lower quadrant pain; O9A.213 Injury, poisoning and certain other consequences of external causes complicating pregnancy, third trimester; S39.81XD Other specified injuries of abdomen, subsequent encounter; W19.XXXD Unspecified fall, subsequent encounter; O98.513 Other viral diseases complicating pregnancy, third trimester; B00.9 Herpesviral infection, unspecified
CPT/HCPCS: 36415; 76815; 80306; 83033; 85025; 86850; 86870; 86900; 86901; 96372; 96374; 99213; A9270; G0378

== ENCOUNTER 2017-01-09 13:42 | Observation (INO) | payer OTHER ==
[2017-01-09 14:22] LABS: BILIRUBIN,URINE NEGATIVE (NEGATIVE); PH,URINE 7.5 PH (5.0-7.5)
[2017-01-09 14:31] LABS: UR CULTURE IF IND NOT INDICATED
[2017-01-09] MEDS ORDERED: ZOLPIDEM 5 MG TABLET PO PRN (15:27)
[2017-01-09] MEDS ORDERED: ONDANSETRON 4 MG/2 ML VIAL IVP PRN (15:27)
[2017-01-09] MEDS ORDERED: ACETAMINOPHEN 500 MG TABLET PO PRN (15:27)
[2017-01-09 16:54] LABS: BASOPHILS % (AUTO) 0.6 %; EOSINOPHILS # (AUTO) 0.2 10^3/uL (0.0-0.7); EOSINOPHILS % (AUTO) 2.8 %; HCT - HEMATOCRIT 30.5 % (37.0-47.0); HGB - HEMOGLOBIN 9.7 g/dL (12.0-16.0); LYMPHOCYTES # (AUTO) 1.6 10^3/uL (1.5-3.5); LYMPHOCYTES % (AUTO) 21.5 %; MEAN CORPUSCULAR HEMOGLOBIN 25.2 pg (27.0-31.0); MEAN CORPUSCULAR HGB CONC 31.8 g/dL (32.0-36.0); MEAN CORPUSCULAR VOLUME 79.3 fL (81.0-99.0); MONOCYTES # (AUTO) 0.6 10^3/uL (0.0-1.0); MONOCYTES % (AUTO) 8.7 %; NEUTROPHILS # (AUTO) 4.9 10^3/uL (1.5-6.6); NEUTROPHILS % (AUTO) 66.4 %; NUCLEATED RED BLOOD CELLS AUTO 0.1 /100WBC; RED BLOOD COUNT 3.85 10^6/uL (4.20-5.40); RED CELL DISTRIBUTION WIDTH 14.8 % (12.0-15.0); UNCORRECTED WHITE BLOOD COUNT 7.4 x10^3/uL; WHITE BLOOD COUNT 7.4 x10^3/uL (4.8-10.8)
[2017-01-09 17:06] LABS: ALBUMIN/GLOBULIN RATIO 0.8 (1.0-2.2); BILIRUBIN,TOTAL 0.4 mg/dL (0.2-1.0); CALCIUM 8.7 mg/dL (8.5-10.3); CREATININE 0.5 mg/dL (0.4-1.0); POTASSIUM 3.6 mmol/L (3.5-5.0)
[2017-01-09 17:34] VITALS: BP 107/75
[2017-01-09 17:39] LABS: THYROID STIMULATING HORMONE 1.12 uIU/mL (0.34-5.60)
--- NOTE | 2017-01-09 17:44 | PROVIDER PROGRESS NOTE ---
Subjective - Prog Note Date Prog Note Date: 01/09/17 Prog Note Time: 17:38 - Subjective Pt reports feeling: No change Subjective: Patient sitting up in bed. at bedside. Patient now states she does not want to stay since it's Thanksgiving. Objective - Vital Signs/Intake & Output Reviewed Vital Signs: Yes Vital Signs: Vital Signs x48h Temp Pulse Resp BP Pulse Ox 01/09/17 17:33 98.2 F 94 16 107/75 99 01/09/17 14:11 98.4 F 83 15 109/68 99 - Objective General Appearance: positive: No acute distress Neurologic/Psychiatric: positive: Oriented x3 - Lab Results Fish Bones: 01/09/17 16:45 01/09/17 16:45 Other Labs: Lab Results x24hrs 01/09/17 01/09/17 01/09/17 Range/Units 16:45 16:45 14:15 WBC 7.4 (4.8-10.8) x10^3/uL RBC 3.85 L (4.20-5.40) 10^6/uL Hgb 9.7 L (12.0-16.0) g/dL Hct 30.5 L (37.0-47.0) % MCV 79.3 L (81.0-99.0) fL MCH 25.2 L (27.0-31.0) pg MCHC 31.8 L (32.0-36.0) g/dL RDW 14.8 (12.0-15.0) % Plt Count 200 (130-450) 10^3/uL MPV 9.0 (7.9-10.8) fL Neut # 4.9 (1.5-6.6) 10^3/uL Lymph # 1.6 (1.5-3.5) 10^3/uL [place] # 0.6 (0.0-1.0) 10^3/uL Eos # 0.2 (0.0-0.7) 10^3/uL Baso # 0.0 (0.0-0.1) 10^3/uL Absolute Nucleated RBC 0.00 x10^3/uL Nucleated RBC % 0.1 /100WBC Sodium 136 (135-145) mmol/L Potassium 3.6 (3.5-5.0) mmol/L Chloride 105 (101-111) mmol/L Carbon Dioxide 22 (21-32) mmol/L Anion Gap 9.0 (6-13) BUN 8 (6-20) mg/dL Creatinine 0.5 (0.4-1.0) mg/dL Estimated GFR (MDRD) 157 (>89) Glucose 121 H (70-100) mg/dL Calcium 8.7 (8.5-10.3) mg/dL Total Bilirubin 0.4 (0.2-1.0) mg/dL AST 17 (10-42) IU/L ALT 11 (10-60) IU/L Alkaline Phosphatase 161 H (42-121) IU/L Total Protein 7.0 (6.7-8.2) g/dL Albumin 3.1 L (3.2-5.5) g/dL Globulin 3.9 (2.1-4.2) g/dL Albumin/Globulin Ratio 0.8 L (1.0-2.2) Urine Color Urine Clarity (CLEAR) Urine pH (5.0-7.5) PH Ur Specific [place] (1.002-1.030) Urine Protein (NEGATIVE) mg/dL Urine Glucose (UA) (NEGATIVE) mg/dL Urine Ketones (NEGATIVE) mg/dL Urine Occult Blood (NEGATIVE) Urine Nitrite (NEGATIVE) Urine Bilirubin (NEGATIVE) Urine Urobilinogen (NORMAL) E.U./dL Ur Leukocyte Esterase (NEGATIVE) Urine RBC (0-5) /HPF Urine WBC (0-5) /HPF Ur Epithelial Cells (<= Few) /HPF Ur Squamous Epith Cells (<= Few) Urine Bacteria (None Seen) /HPF Urine Culture Comments Urine Opiates Screen NEGATIVE (NEGATIVE) Ur Oxycodone Screen NEGATIVE (NEGATIVE) Urine Methadone Screen NEGATIVE (NEGATIVE) Ur Propoxyphene Screen NEGATIVE (NEGATIVE) Ur Barbiturates Screen NEGATIVE (NEGATIVE) Ur Tricyclics Screen NEGATIVE (NEGATIVE) Ur Phencyclidine Scrn NEGATIVE (NEGATIVE) Ur Amphetamine Screen NEGATIVE (NEGATIVE) U Methamphetamines Scrn NEGATIVE (NEGATIVE) U Benzodiazepines Scrn NEGATIVE (NEGATIVE) Urine Cocaine Screen NEGATIVE (NEGATIVE) U Cannabinoids Screen NEGATIVE (NEGATIVE) 01/09/17 Range/Units 14:13 WBC (4.8-10.8) x10^3/uL RBC (4.20-5.40) 10^6/uL Hgb (12.0-16.0) g/dL Hct (37.0-47.0) % MCV (81.0-99.0) fL MCH (27.0-31.0) pg MCHC (32.0-36.0) g/dL RDW (12.0-15.0) % Plt Count (130-450) 10^3/uL MPV (7.9-10.8) fL Neut # (1.5-6.6) 10^3/uL Lymph # (1.5-3.5) 10^3/uL [place] # (0.0-1.0) 10^3/uL Eos # (0.0-0.7) 10^3/uL Baso # (0.0-0.1) 10^3/uL Absolute Nucleated RBC x10^3/uL Nucleated RBC % /100WBC Sodium (135-145) mmol/L Potassium (3.5-5.0) mmol/L Chloride (101-111) mmol/L Carbon Dioxide (21-32) mmol/L Anion Gap (6-13) BUN (6-20) mg/dL Creatinine (0.4-1.0) mg/dL Estimated GFR (MDRD) (>89) Glucose (70-100) mg/dL Calcium (8.5-10.3) mg/dL Total Bilirubin (0.2-1.0) mg/dL AST (10-42) IU/L ALT (10-60) IU/L Alkaline Phosphatase (42-121) IU/L Total Protein (6.7-8.2) g/dL Albumin (3.2-5.5) g/dL Globulin (2.1-4.2) g/dL Albumin/Globulin Ratio (1.0-2.2) Urine Color YELLOW Urine Clarity CLEAR (CLEAR) Urine pH 7.5 (5.0-7.5) PH Ur Specific [place] 1.015 (1.002-1.030) Urine Protein NEGATIVE (NEGATIVE) mg/dL Urine Glucose (UA) NEGATIVE (NEGATIVE) mg/dL Urine Ketones NEGATIVE (NEGATIVE) mg/dL Urine Occult Blood NEGATIVE (NEGATIVE) Urine Nitrite NEGATIVE (NEGATIVE) Urine Bilirubin NEGATIVE (NEGATIVE) Urine Urobilinogen 1 (NORMAL) (NORMAL) E.U./dL Ur Leukocyte Esterase NEGATIVE (NEGATIVE) Urine RBC 0-5 (0-5) /HPF Urine WBC 4-5 (0-5) /HPF Ur Epithelial Cells FEW Transitional (<= Few) /HPF Ur Squamous Epith Cells MANY Squamous H (<= Few) Urine Bacteria Moderate H (None Seen) /HPF Urine Culture Comments NOT INDICATED Urine Opiates Screen (NEGATIVE) Ur Oxycodone Screen (NEGATIVE) Urine Methadone Screen (NEGATIVE) Ur Propoxyphene Screen (NEGATIVE) Ur Barbiturates Screen (NEGATIVE) Ur Tricyclics Screen (NEGATIVE) Ur Phencyclidine Scrn (NEGATIVE) Ur Amphetamine Screen (NEGATIVE) U Methamphetamines Scrn (NEGATIVE) U Benzodiazepines Scrn (NEGATIVE) Urine Cocaine Screen (NEGATIVE) U Cannabinoids Screen (NEGATIVE) Assessment/Plan - Problem List (1) Abdominal trauma Impression: 21 yo with a 37w5d IUP. S/p abdominal trauma after falling off her bed 2.5 - 3 feet off the floor. Stable and maternal status. Work up so for significant for iron deficiency anemia. EKG and UTOX both negative. Patient has voiced her desire to leave AMA. D/W the patient that I would recommend her to stay in order to evaluate her for placental abruption. With placental abruption, this may lead to a catastrophic bleed for both mom and baby. The patient voices her understanding but still desires to leave. Patient to sign AMA papers. Patient states she will return if she starts having abdominal pain or vaginal bleeding or decreased FM. Recommend the patient to get a NST at the [facility] tomorrow.
--- NOTE | 2017-01-09 18:53 | Ultrasound Preliminary Report ---
Exam: US OB F/U OR REPEAT IMPRESSION: 1. Bryant live intrauterine in cephalic presentation. 2. biometry as above. 3. Posterior placenta. ANALIA 19.2. RADI SITE ID: [id number]
--- NOTE | 2017-01-09 18:56 | Ultrasound Report ---
EXAM: LIMITED OBSTETRICAL ULTRASOUND EXAM DATE: 01/09/2017 04:12 PM. CLINICAL HISTORY: Pt fell out of bed two nights ago and last night. Decreased movement. COMPARISON: 12/09/2016, 11/17/2016, 07/14/2016, 06/01/2016. TECHNIQUE: Real-time sonographic evaluation of the fetus performed by the police captain senior. Multiple repre sentative static images were saved for review. Additional transvaginal imaging to more accurately edu luate cervical length/placental position/etc. DATING: Established EGA 37 weeks and 4 days with BREANNE 01/26/2017 based on first trimester ultrasound. GENERAL EVALUATION Bryant . Cardiac activity: 154 bpm. movement: Visualized. Presentation: Cephalic. Placenta: Posterior position. Grossly unremarkable. Amniotic fluid: ANALIA 19.2 cm. MVP 5.3 cm. ANATOMY Not specifically assessed on this limited exam. BIOMETRY: Biparietal diameter: 9.5 cm, corresponding to 38 weeks and 4 days Head circumference: 34 cm, corresponding to 39 weeks Abdominal circumference: 34.2 cm, corresponding to 38 weeks Femur length: 7.4 cm, corresponding to 37 weeks and 6 days EFW: 3419 gm (74%) IMPRESSION: 1. Bryant live intrauterine in cephalic presentation. 2. biometry as above. 3. Posterior placenta. ANALIA 19.2. ALEJANDRA Referring Provider Line: [phone] SITE ID: [id number]
[2017-01-09] MEDS ORDERED: ACYCLOVIR 200 MG CAPSULE PO SCH (21:00)
[2017-01-09] MEDS ORDERED: FERROUS SULFATE 325 MG TABLET PO SCH (21:00)
[2017-01-10] MEDS ORDERED: PRENATAL VITAMIN TABLET PO SCH (08:00)
--- NOTE | 2017-01-10 09:33 | HISTORY & PHYSICAL EXAMINATION ---
DATE OF ADMISSION: 01/09/2017 IDENTIFICATION: A 21-year-old G2, P1-0-0-1 with 37-4/7-week intrauterine , EDC is 01/27/2017 changed by 8-week ultrasound. HISTORY OF PRESENT ILLNESS: The patient presents today with her , Cristofer, to [facility]. The patient is a patient in the [facility], and they are currently on dive rt. She states that she is here for 2 reasons, the first being that there is decreased movement . The second reason being that patient has twice fallen out of bed. Two nights ago she recalled that she rolled out of bed and hit her left abdominal sidewall. Last night she had a more significant fall on her right abdomen. She states that she basically rolled off the bed and then hit a side-rail whic h was more towards the floor. Patient states that the height of her bed is approximately 2.5 to 3 fee t tall. She states that she does feel dizzy when she gets up from the supine to a standing position. She denies any sensation of the room spinning or any pablo-syncopal symptoms like she had back on 02/2016. When I first met patient she stated that she passed out in the bathroom of the movie theater and was found by restroom attendant. Patient states that syncopal episode was the last time she had t hat sort of event. In any case, she states the baby has not been moving as much. She denied, however, any vaginal bleedi ng or loss of fluid. She is having some irregular contractions. She denies any fevers, chills, nausea or vomiting. The patient was most recently seen at the [facility] for her routine OB visit on at 37 weeks 2 days. Fundal height measured 38 cm at that time, and a cervical examination sh owed that she was 2 cm dilated, 60% effaced, and -2 station. She has been normotensive throughout thi s with the systolics mainly in the 90s-110s and diastolics of 60s-70s. PAST MEDICAL HISTORY 1. Iron deficiency anemia was diagnosed in this . 2. History of syncope during this with no obvious etiology. PAST SURGICAL HISTORY: In 2012 appendectomy. ALLERGIES: BENADRYL, WITH WHICH SHE SWELLS. MEDICATIONS Include: 1. vitamins. 2. FeSO 4. SOCIAL HISTORY: She denies any tobacco, alcohol or illicit drug use. She states that she is , being as well as . Her grandmother is from [place] and her grandfather is from [facility]. She does speak fluent Mexican. The patient's first child is a 2-year-old named Kev Brown. He is being baby sat currently by a grandmother. She is to Cristofer Subramanian, who is in the [facility]. Th is is a male fetus with anticipated name of Cristofer Matt. This is Cristofer's first child. 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 She spent some time of her childhoo d in [place]. She moved from [place] to [place] at age 6. She did not know Ethiopian at that time. PAST OBSTETRICAL HISTORY: One term vaginal delivery of son named Kev Brown at about 40 weeks' gestat ion. The records show that she delivered Kevin within 30 minutes. Patient has recalled that she had bl eeding issues with the of her son, Kevin, secondary to a low lying placenta. She did not req uire blood transfusion. Again, she is a patient of the [facility] and anticipates to deliver ther e. PAST GYNECOLOGICAL HISTORY: The patient states that she has a history of genital herpes outbreak with initial one occurring 12/2015. The patient was given a prescription for valacyclovir on 08/08/2016. It does not appear that she is currently taking this on a routine basis. She was diagnosed with bacte rial vaginosis as well as for a yeast infection on 11/26/2016, at 31 weeks' gestation. She was treate d with a vaginal cream and then later with Diflucan. She denies any other sexually transmitted diseas es. FAMILY HISTORY: Noncontributory. REVIEW OF SYSTEMS: Negative unless otherwise stated. OBJECTIVE VITAL SIGNS: Height is 162 cm and pre- weight was 54.5 kg. Current is at 64 kg, te mperature is 98.4, heart rate 83, blood pressure 109/68, respirations 16, O2 saturation 99%. GENERAL: The patient is a well-developed, well-nourished female in no apparent distress. She is alert and oriented x3. She is very pleasant and easy to speak to. HEENT: Within normal limits. ABDOMEN: Gravid, nontender. No signs of ecchymosis. No other signs of scratches or lacerations. heart tones in the 140s to 150s with a reactive category 1 tracing. The patient is having rare contr actions, perhaps one every 20 minutes. LABS: She is A negative, antibody screen is negative, rubella immune, RPR nonreactive, HIV n egative. Chlamydia and gonorrhea are both negative. GBS culture on 09/30/2016 at 23 weeks gestation w as negative. [facility] records revealed that she had a recent GBS re-done on 12/31/2016, but test results are not in the records. Urinalysis so far reveals a contaminated specimen. It is, however, negative f or proteinuria, glucosuria, red blood cells, white blood cells or leukocytes. The preliminary report for the ultrasound performed today has not been reported. However, the ultraso und photos show that the EFW is 3490 grams or 7.54 pounds in the 74th percentile, heart rate is 154 beats per minute with an ANALIA of 19.2 cm. There is a grade 3 posterior fundal placenta with no si gns of mary jane abruption. ASSESSMENT 1. A 21-year-old G2, P1-0-0-1 with a 37-4/7-week intrauterine . 2. Status post abdominal trauma. 3. HSV positive. 4. Rh negative. 5. Iron deficiency anemia. PLAN 1. Will admit the patient to observation overnight given that she is term and will need to be ruled o ut for placental abruption. Will keep the patient on continuous monitoring overnight. 2. Will establish a saline lock should there be any concerns about the maternal status. 3. I will obtain an EKG to rule out any obvious electrical cardiac issues. 4. Will obtain thyroid labs to make sure that the etiology of her dizziness and falling out of bed is not due to thyroid issues. 5. Will obtain a CBC given her iron deficiency anemia that may be causing her symptoms. 6. Will obtain a U-tox. 7. Will obtain a Rh workup. The patient was noted to have 2 doses of RhoGAM. She had received her fir st dosed by the [facility] on 11/04/2016 and a second dose by myself on 11/17/2016 at 30 weeks unknowingly secondary to limited records at that time. I would to anticipate this antibody screen to be positive given that the RhoGAM has been given within a 12-week period. 8. We will start the patient on acyclovir given she is greater than 36 weeks in order to prevent any herpetic outbreaks. 9. Murray mcnally JOB #: [id number] EXT JOB #:[id number]
== END 2017-01-09 17:42 | disposition home or self-care (01) ==
LOC: WFO 13:42 → FBP 13:43 → WFO 15:24 → UNDOADMOB 15:25 → FBP 15:25 → UNDODISOB 17:42
PROVIDERS: ADMIT Obstetrics & Gynecology; ATTEND Obstetrics & Gynecology
DX: O9A.213 Injury, poisoning and certain other consequences of external causes complicating pregnancy, third trimester (principal); S39.91XA Unspecified injury of abdomen, initial encounter; O98.313 Other infections with a predominantly sexual mode of transmission complicating pregnancy, third trimester; A60.00 Herpesviral infection of urogenital system, unspecified; O99.013 Anemia complicating pregnancy, third trimester; D64.89 Other specified anemias; O36.8130 Decreased fetal movements, third trimester, not applicable or unspecified; O26.893 Other specified pregnancy related conditions, third trimester; Z67.91 Unspecified blood type, Rh negative; W06.XXXA Fall from bed, initial encounter; Z91.81 History of falling; Y93.84 Activity, sleeping; Y92.239 Unspecified place in hospital as the place of occurrence of the external cause; Z3A.37 37 weeks gestation of pregnancy
CPT/HCPCS: 36415; 59025; 76816; 80053; 80306; 81001; 83033; 84439; 84443; 84481; 85025; 86850; 86870; 86900; 86901; G0378; 87086

== ENCOUNTER 2017-03-09 00:28 | Emergency (ER) | payer OTHER ==
[2017-03-09 01:06] LABS: BILIRUBIN,URINE NEGATIVE (NEGATIVE); GLUCOSE, URINE (UA) NEGATIVE (NEGATIVE); KETONES,URINE (UA) NEGATIVE (NEGATIVE); LEUKOCYTE ESTERASE, URINE NEGATIVE (NEGATIVE); NITRITE,URINE NEGATIVE (NEGATIVE); OCCULT BLOOD,URINE NEGATIVE (NEGATIVE); PROTEIN,URINE NEGATIVE (NEGATIVE); UROBILINOGEN,URINE 1 (NORMAL) E.U./dL (NORMAL)
[2017-03-09 01:07] LABS: CLARITY,URINE CLEAR (CLEAR)
[2017-03-09] MEDS ORDERED: FLUCONAZOLE 100 MG TABLET PO STA (01:50)
[2017-03-09 02:19] LABS: HCG UR QUAL NEGATIVE
--- NOTE | 2017-03-09 03:34 | Ultrasound Report ---
EXAM: PELVIC ULTRASOUND EXAM DATE: 03/09/2017 03:16 AM. CLINICAL HISTORY: Post , suprapubic pain, COMPARISON: 01/22/2016. TECHNIQUE: Realtime transabdominal pelvic scan performed to identify the uterus and adnexa and as an overview of other pelvic structures, followed by transvaginal scan to provide greater detail of the u terus and adnexa, with static image documentation. FINDINGS: LMP: 10 months ago Uterus: Uterus is retroflexed in position and normal in configuration. Uterus measures 9.8 x 7.4 x 4 .3 cm. No evident uterine masses. Endometrium: Endometrium measures 8.6 mm. Small endometrial calcification, nonspecific. Cervix: No suspicious lesion. Right Ovary: Normal in appearance measuring 2.5 x 2.0 x 1.9 cm. Normal blood flow. Left Ovary: Normal in appearance measuring 2.5 x 1.8 x 1.8 cm. Normal blood flow. Fluid: No signficant free fluid. Other: No other significant findings. IMPRESSION: No significant pelvic abnormality. RADIA Referring Provider Line: [phone] SITE ID: [id number]
--- NOTE | 2017-03-09 03:34 | Ultrasound Preliminary Report ---
Exam: US PELVIC NON OB W/DOPPLER LTD IMPRESSION: No significant pelvic abnormality. RADIA SITE ID: [id number]
[2017-03-09] MEDS ORDERED: DICYCLOMINE 10 MG CAPSULE PO STA (03:38)
[2017-03-09] MEDS ORDERED: IBUPROFEN 400 MG TABLET PO STA (03:38)
--- NOTE | 2017-03-09 03:41 | ED Physician Documentation ---
PD HPI FEMALE - Stated complaint Stated Complaint: ABDOMINAL PAIN - Chief complaint Chief Complaint: Abd Pain - History obtained from History obtained from: Patient, Family - History of Present Illness Timing - onset: How many days ago (4) Timing - details: Gradual onset, Still present Associated symptoms: Abdominal pain, Pelvic pain. No: Fever OB-FIELD TECH History: G (1), P (1), Prior vag delivery Similar symptoms before: No diagnosis Recently seen: Not recently seen - Additional information Additional information: patient is a 21 year old about 6 weeks post who is presenting to the emergency department for pelvic pain and discharge. Patient states that it has been going on for the last few days. Patient states that she has not been breast feeding and has been sexually active with her . Review of Systems Constitutional: denies: Fever, Chills Eyes: reports: Reviewed and negative Ears: reports: Reviewed and negative Nose: reports: Reviewed and negative Throat: reports: Reviewed and negative Cardiac: reports: Reviewed and negative Respiratory: denies: Dyspnea, Cough GI: reports: Abdominal Pain, Nausea. denies: Vomiting, Constipation : reports: Frequency, Discharge. denies: Dysuria Skin: denies: Rash, Lesions Immunocompromised: denies: Immunocompromised PD PAST MEDICAL HISTORY - Past Medical History Cardiovascular: None Respiratory: None Neuro: None Endocrine/Autoimmune: None GI: None FIELD TECH: None : None HEENT: None Psych: None Musculoskeletal: None Derm: None - Past Surgical History Past Surgical History: Yes General: Appendectomy - Present Medications Home Medications: Ambulatory Orders Medication Instructions Recorded Confirmed Dicyclomine [Bentyl] 10 mg PO QID #14 capsule 03/09/17 Ondansetron Odt [Zofran] 4 mg TL Q6H PRN #20 tablet 03/09/17 - Allergies Allergies/Adverse Reactions: Allergies Allergy/AdvReac Type Severity Reaction Status Date / Time diphenhydramine HCl * Allergy Edema Verified 03/09/17 00:40 [From Benadryl] - Social History Does the pt smoke?: No Smoking Status: Never smoker Does the pt drink ETOH?: No Does the pt have substance abuse?: No - Immunizations Immunizations are current?: Yes - POLST Patient has POLST: No PD ED PE NORMAL - Vitals Vital signs reviewed: Yes - General General: Alert and oriented X 3, No acute distress, Well developed/nourished - HEENT HEENT: Atraumatic, PERRL - Cardiac Cardiac: RRR, No murmur - Respiratory Respiratory: No respiratory distress - Abdomen Abdomen: Soft - Derm Derm: Normal color, Warm and dry, No rash - Extremities Extremities: No deformity, No edema - Neuro Neuro: Alert and oriented X 3, No motor deficit, No sensory deficit, Normal speech - Psych Psych: Normal mood PD ED PE EXPANDED - Abdomen Abdomen: Tender to palpation, Periumbilical - Female Female : Normal external, Vaginal Discharge (very scant vaginal discharge), Cultures sent, Navy Material Inspector present Results - Vitals Vitals: Vital Signs - 24 hr 03/09/17 00:35 Temperature 37.2 C Heart Rate 65 Respiratory 18 Rate Blood Pressure 110/59 L O2 Saturation 100 Oxygen O2 Source Room air - Labs Labs: Microbiology 03/09/17 01:50 Wet Prep - Final Genital - Vaginal Laboratory Tests 03/09/17 03/09/17 00:42 00:49 Urine Color YELLOW Urine Clarity CLEAR Urine pH 6.0 Ur Specific [place] 1.020 1.020 Urine Protein NEGATIVE Urine Glucose (UA) NEGATIVE Urine Ketones NEGATIVE Urine Occult Blood NEGATIVE Urine Nitrite NEGATIVE Urine Bilirubin NEGATIVE Urine Urobilinogen 1 (NORMAL) Ur Leukocyte Esterase NEGATIVE Ur Microscopic Review NOT INDICATED Urine Culture Comments NOT INDICATED Urine HCG, Qual NEGATIVE - Rads (name of study) pelvic ultrasound Radiology: Final report received (no acute abnormality) PD MEDICAL DECISION MAKING - ED course Complexity details: reviewed old records, reviewed results, re-evaluated patient , considered differential, d/w patient, d/w family ED course: Patient was seen and examined at bedside. urine was collected and sent. Pelvic exam was performed and was unremarkable. Patient was sent for ultrasound. when patient returned from ultrasound the results were reviewed. there were no acute abnormalities. Patient was treated with ibuprofen and bentyl for pain. patient required no further work up and was stable for discharge with outpatient follow up. Departure - Departure Disposition: 01 Home, Self Care Clinical Impression: Pelvic pain Condition: Good Instructions: ED Pelvic Pain [facility] Follow-Up: Mehdi Bingham MD [Primary Care Provider] - As Needed Prescriptions: Dicyclomine [Bentyl] 10 mg PO QID #14 capsule Ondansetron Odt [Zofran] 4 mg TL Q6H PRN #20 tablet PRN Reason: Nausea / Vomiting Comments: Your diagnostics today were within normal limits. there was no acute abnormality on your exam or ultrasound. You can take motrin or tylenol as needed for pain and make sure you stay well hydrated. You should follow up with your doctor if your symptoms persist. You may return to the emergency department at any time for new, worsening or uncontrollable symptoms.
[2017-03-09] MEDS ORDERED: ONDANSETRON ODT 4 MG TABLET TL STA (03:47)
[2017-03-09 03:54] VITALS: BP 127/74
== END 2017-03-09 03:54 | disposition home or self-care (01) ==
LOC: ED 00:28
DX: O90.89 Other complications of the puerperium, not elsewhere classified (principal); R10.2 Pelvic and perineal pain; N89.8 Other specified noninflammatory disorders of vagina; R11.0 Nausea
CPT/HCPCS: 76856; 81003; 81025; 87210; 87491; 87591; 93976; 99283; 99284; A9270; Q0162; 81001; 87086

== ENCOUNTER 2017-03-26 02:34 | Emergency (ER) | payer OTHER ==
--- NOTE | 2017-03-26 02:45 | ED Physician Documentation ---
History of Present Illness - Stated complaint Stated Complaint: ALLERGIC REACTION - History obtained from History obtained from: Patient - History of Present Illness Timing: How many hours ago (30-45 minutes SENIOR CARE ASSISTANT) - Additonal information Additional information: c/o generalized pruritis and rash on neck, lips, face. This started less than 1 hour SENIOR CARE ASSISTANT when she kissed her boyfriend who had just eaten pistachios. Patient has known allergy to peanuts. Denies dyspnea Review of Systems Respiratory: denies: Dyspnea, Cough PD PAST MEDICAL HISTORY - Past Medical History Cardiovascular: None Respiratory: None Neuro: None Endocrine/Autoimmune: None GI: None ELECTRICIAN CHIEF: None : None HEENT: None Psych: None Musculoskeletal: None Derm: None - Past Surgical History Past Surgical History: Yes General: Appendectomy - Present Medications Home Medications: Ambulatory Orders Medication Instructions Recorded Confirmed Dicyclomine [Bentyl] 10 mg PO QID #14 capsule 03/09/17 Ondansetron Odt [Zofran] 4 mg TL Q6H PRN #20 tablet 03/09/17 predniSONE [Prednisone] 40 mg PO DAILY #6 tablet 03/26/17 - Allergies Allergies/Adverse Reactions: Allergies Allergy/AdvReac Type Severity Reaction Status Date / Time peanut Allergy Unknown Verified 03/26/17 02:56 - Social History Does the pt smoke?: No Smoking Status: Never smoker Does the pt drink ETOH?: No Does the pt have substance abuse?: No - Immunizations Immunizations are current?: Yes - POLST Patient has POLST: No PD ED PE NORMAL - Vitals Vital signs reviewed: Yes - General General: Alert and oriented X 3, No acute distress (frequently scratching neck and upper chest), Well developed/nourished - HEENT HEENT: Moist mucous membranes, Pharynx benign (widely patent, no intraoral swelling), Other - Neck Neck: Other (faint urticaria on neck as well as on lower face and around lips) - Respiratory Respiratory: No respiratory distress, Clear bilaterally Results - Vitals Vitals: Vital Signs - 24 hr 03/26/17 03/26/17 03/26/17 02:40 03:08 03:25 Temperature 36.8 C Heart Rate 78 103 H 87 Respiratory 25 H 18 16 Rate Blood Pressure 147/103 H 112/60 118/71 O2 Saturation 100 100 99 03/26/17 03:51 Temperature Heart Rate 70 Respiratory 16 Rate Blood Pressure 101/67 O2 Saturation 100 Oxygen O2 Source Room air PD MEDICAL DECISION MAKING - ED course Complexity details: re-evaluated patient, considered differential, d/w patient ED course: Given 50mg benadryl IM, 10mg PO decadron. Reevaluated 30 minutes later and already reports significant improvement, feels comfortable with d/c home. Departure - Departure Disposition: Home, Self Care Clinical Impression: Allergic reaction Condition: Good Instructions: ED Allergic Reaction General Other Follow-Up: Mehdi Bingham MD [Primary Care Provider] - Prescriptions: predniSONE [Prednisone] 40 mg PO DAILY #6 tablet Discharge Date/Time: 03/26/17 03:52
[2017-03-26] MEDS ORDERED: DEXAMETHASONE 10 MG/ML VIAL PO STA (02:59)
[2017-03-26] MEDS ORDERED: diphenhydrAMINE INJ 50 MG/ML VIAL IM STA (02:59)
[2017-03-26 03:51] VITALS: BP 101/67
== END 2017-03-26 03:52 | disposition home or self-care (01) ==
LOC: ED 02:34
DX: L23.6 Allergic contact dermatitis due to food in contact with the skin (principal); Z91.010 Allergy to peanuts
CPT/HCPCS: 96372; 99283

== ENCOUNTER 2017-05-08 14:06 | Emergency (ER) | payer OTHER ==
[2017-05-08] MEDS ORDERED: RHO(D) IMMUNE GLOBULIN 300 MCG SYRINGE IM ONE (14:24)
--- NOTE | 2017-05-08 14:27 | ED Physician Documentation ---
History of Present Illness - Stated complaint Stated Complaint: CRAMPING/DIARRHEA 8WKS PREG - Chief complaint Chief Complaint: General - History obtained from History obtained from: Patient - History of Present Illness Timing: Yesterday (She developed runny nose and sore throat yesterday. No body aches or fevers. But she was coughing a bit, nonproductive and today she developed some cramping and very slight bleeding. She is 8 weeks along and blood type is known to be Rh-. She has not had RhoGam in this yet.) Review of Systems Constitutional: reports: Reviewed and negative Nose: reports: Rhinorrhea / runny nose Throat: reports: Sore throat Respiratory: denies: Dyspnea, Cough GI: denies: Abdominal Pain, Nausea, Vomiting, Constipation, Diarrhea PD PAST MEDICAL HISTORY - Past Medical History Past Medical History: No Cardiovascular: None Respiratory: None Neuro: None Endocrine/Autoimmune: None GI: None BUSINESS ACCOUNT MANAGER: None : None HEENT: None Psych: None Musculoskeletal: None Derm: None - Past Surgical History Past Surgical History: Yes General: Appendectomy - Present Medications Home Medications: Ambulatory Orders Medication Instructions Recorded Confirmed Nitrofurantoin Monohyd/M-Cryst 1 tab PO BID 5 Days capsule 05/08/17 [Macrobid 100 mg Capsule] - Allergies Allergies/Adverse Reactions: Allergies Allergy/AdvReac Type Severity Reaction Status Date / Time peanut Allergy Unknown Verified 03/26/17 02:56 all nuts Allergy Unknown Uncoded 05/08/17 14:21 - Social History Does the pt smoke?: No Smoking Status: Never smoker Does the pt drink ETOH?: No Does the pt have substance abuse?: No - Immunizations Immunizations are current?: Yes - POLST Patient has POLST: No PD ED PE NORMAL - Vitals Vital signs reviewed: Yes - General General: Alert and oriented X 3, No acute distress - HEENT HEENT: Ears normal, Pharynx benign - Neck Neck: Supple, no meningeal sign, No bony TTP - Cardiac Cardiac: RRR, No murmur - Respiratory Respiratory: Clear bilaterally - Abdomen Abdomen: Non tender - Female Female : Other (Bedside ultrasound demonstrates single live intrauterine with a heart rate of 146.) - Back Back: No CVA TTP, No spinal TTP - Derm Derm: Normal color, Warm and dry - Extremities Extremities: No edema, No calf tenderness / cord - Neuro Neuro: Alert and oriented X 3, Normal speech Results - Vitals Vitals: Vital Signs - 24 hr 05/08/17 05/08/17 14:11 15:38 Temperature 36.9 C Heart Rate 87 69 Respiratory 16 16 Rate Blood Pressure 115/67 117/63 O2 Saturation 100 100 Oxygen O2 Source Room air - Labs Labs: Laboratory Tests 05/08/17 05/08/17 14:30 14:40 Urine Color YELLOW Urine Clarity HAZY Urine pH 7.5 Ur Specific [place] 1.020 Urine Protein NEGATIVE Urine Glucose (UA) NEGATIVE Urine Ketones NEGATIVE Urine Occult Blood NEGATIVE Urine Nitrite NEGATIVE Urine Bilirubin NEGATIVE Urine Urobilinogen 0.2 (NORMAL) Ur Leukocyte Esterase LARGE H Urine RBC 0-5 Urine WBC >25 H Ur Squamous Epith Cells MANY Squamous H Urine Bacteria Moderate H Ur Microscopic Review INDICATED Urine Culture Comments NOT INDICATED Influenza A (Rapid) Negative Influenza B (Rapid) Negative Influenza Types A,B Ag - PD MEDICAL DECISION MAKING - ED course ED course: She has a viral URI, influenza negative. Well-appearing with unremarkable examination. She has a tiny amount of spotting but a reassuring bedside ultrasound. Bacteriuria in will be treated with Macrobid. Otherwise conservative care with Tylenol and fluids was advised. Departure - Departure Disposition: 01 Home, Self Care Clinical Impression: Viral URI, Vaginal spotting, 8 weeks gestation of , Bacteria in urine Condition: Good Record reviewed to determine appropriate education?: Yes Instructions: ED Viral Syndrome Prescriptions: Nitrofurantoin Monohyd/M-Cryst [Macrobid 100 mg Capsule] 1 tab PO BID 5 Days capsule Comments: Let your OB know that you got RhoGam today. (300) Call your doctor to arrange a follow-up appointment, make the next available appointment. In the interim, return anytime if worse or if new symptoms develop. Discharge Date/Time: 05/08/17 15:40
[2017-05-08 14:47] LABS: BILIRUBIN,URINE NEGATIVE (NEGATIVE); CLARITY,URINE HAZY (CLEAR); GLUCOSE, URINE (UA) NEGATIVE (NEGATIVE); KETONES,URINE (UA) NEGATIVE (NEGATIVE); LEUKOCYTE ESTERASE, URINE LARGE (NEGATIVE); NITRITE,URINE NEGATIVE (NEGATIVE); OCCULT BLOOD,URINE NEGATIVE (NEGATIVE); PH,URINE 7.5 PH (5.0-7.5); PROTEIN,URINE NEGATIVE (NEGATIVE); UROBILINOGEN,URINE 0.2 (NORMAL) E.U./dL (NORMAL)
[2017-05-08 14:57] LABS: BACTERIA,URINE Moderate /HPF (None Seen); RBC,URINE 0-5 /HPF (0-5); SQUAMOUS EPITHELIAL CELL,UR MANY Squamous (<= Few)
[2017-05-08 15:38] VITALS: BP 117/63
== END 2017-05-08 15:40 | disposition home or self-care (01) ==
LOC: ED 14:06
DX: O26.891 Other specified pregnancy related conditions, first trimester (principal); J06.9 Acute upper respiratory infection, unspecified; B97.89 Other viral agents as the cause of diseases classified elsewhere; O26.851 Spotting complicating pregnancy, first trimester; Z3A.08 8 weeks gestation of pregnancy
CPT/HCPCS: 81001; 81003; 87086; 87275; 87276; 96372; 99283

== ENCOUNTER 2017-05-20 00:58 | Emergency (ER) | payer OTHER ==
[2017-05-20 01:27] LABS: BILIRUBIN,URINE NEGATIVE (NEGATIVE); GLUCOSE, URINE (UA) NEGATIVE (NEGATIVE); KETONES,URINE (UA) NEGATIVE (NEGATIVE); LEUKOCYTE ESTERASE, URINE SMALL (NEGATIVE); NITRITE,URINE NEGATIVE (NEGATIVE); OCCULT BLOOD,URINE NEGATIVE (NEGATIVE); PH,URINE 5.5 PH (5.0-7.5); PROTEIN,URINE NEGATIVE (NEGATIVE); UROBILINOGEN,URINE 0.2 (NORMAL) E.U./dL (NORMAL)
[2017-05-20 01:28] LABS: CLARITY,URINE CLEAR (CLEAR); HCG UR QUAL POSITIVE
[2017-05-20 01:31] LABS: BACTERIA,URINE Few /HPF (None Seen); RBC,URINE 0-5 /HPF (0-5); SQUAMOUS EPITHELIAL CELL,UR MANY Squamous (<= Few); YEAST,URINE PRESENT
--- NOTE | 2017-05-20 02:47 | ED Physician Documentation ---
PD HPI FEMALE - Stated complaint Stated Complaint: FEMALE - Chief complaint Chief Complaint: Abd Pain - History obtained from History obtained from: Patient, Family - History of Present Illness Timing - onset: Yesterday Timing - details: Gradual onset, Still present Associated symptoms: Vaginal discharge, Dysuria Contributing factors: OB-LOFT RIGGER History: G (3), P (2) Similar symptoms before: Work up / diagnostics Recently seen: Not recently seen - Additional information Additional information: Patient is a 21 year old about 10 weeks by dates who is presenting to the emergency department for dysuria and vaginal discharge. Patient states that she has some burning with urination and some discharge that is painful and itches. Patient states that she has a history of herpes but has not seen any lesions. Review of Systems Constitutional: denies: Fever, Chills Eyes: reports: Reviewed and negative Ears: reports: Reviewed and negative Nose: reports: Reviewed and negative Throat: reports: Reviewed and negative Cardiac: reports: Reviewed and negative Respiratory: reports: Reviewed and negative GI: denies: Abdominal Pain, Nausea, Vomiting, Diarrhea : reports: Dysuria, Frequency, Discharge. denies: Vaginal bleeding Skin: reports: Reviewed and negative Musculoskeletal: reports: Reviewed and negative Neurologic: reports: Reviewed and negative Immunocompromised: denies: Immunocompromised PD PAST MEDICAL HISTORY - Past Medical History Past Medical History: Yes Cardiovascular: None Respiratory: None Neuro: None Endocrine/Autoimmune: None GI: None LOFT RIGGER: None : None HEENT: None Psych: None Musculoskeletal: None Derm: None Other Past Medical History: Herpes, anemia - Past Surgical History Past Surgical History: Yes General: Appendectomy - Present Medications Home Medications: Ambulatory Orders Medication Instructions Recorded Confirmed Nitrofurantoin Monohyd/M-Cryst 100 mg PO BID 5 Days capsule 05/20/17 [Macrobid 100 mg Capsule] - Allergies Allergies/Adverse Reactions: Allergies Allergy/AdvReac Type Severity Reaction Status Date / Time peanut Allergy Unknown Verified 05/20/17 01:07 all nuts Allergy Unknown Uncoded 05/20/17 01:07 - Social History Does the pt smoke?: No Smoking Status: Never smoker Does the pt drink ETOH?: No Does the pt have substance abuse?: No - Immunizations Immunizations are current?: Yes - POLST Patient has POLST: No PD ED PE NORMAL - Vitals Vital signs reviewed: Yes - General General: Alert and oriented X 3, No acute distress, Well developed/nourished - HEENT HEENT: Atraumatic, PERRL - Neck Neck: Supple, no meningeal sign - Cardiac Cardiac: RRR - Respiratory Respiratory: No respiratory distress - Abdomen Abdomen: Soft, Non distended - Derm Derm: Normal color, Warm and dry, No rash - Extremities Extremities: No deformity - Neuro Neuro: Alert and oriented X 3 Eye Opening: Spontaneous Motor: Obeys Commands Verbal: Oriented GCS Score: 15 PD ED PE EXPANDED - Female Female : Normal external, Vaginal Discharge (white vaginal discharge consisitent with yeast infection) Results - Vitals Vitals: Vital Signs - 24 hr 05/20/17 05/20/17 01:02 02:52 Temperature 36.3 C L 36.5 C Heart Rate 96 91 Respiratory 18 18 Rate Blood Pressure 127/83 H 122/78 O2 Saturation 100 98 Oxygen O2 Source Room air - Labs Labs: Microbiology 05/20/17 02:18 Wet Prep - Final Genital - Cervix Laboratory Tests 05/20/17 01:20 Urine Color YELLOW Urine Clarity CLEAR Urine pH 5.5 Ur Specific [place] >=1.030 H Urine Protein NEGATIVE Urine Glucose (UA) NEGATIVE Urine Ketones NEGATIVE Urine Occult Blood NEGATIVE Urine Nitrite NEGATIVE Urine Bilirubin NEGATIVE Urine Urobilinogen 0.2 (NORMAL) Ur Leukocyte Esterase SMALL H Urine RBC 0-5 Urine WBC 6-10 H Ur Squamous Epith Cells MANY Squamous H Urine Bacteria Few Urine Yeast PRESENT Ur Microscopic Review INDICATED Urine Culture Comments NOT INDICATED Urine HCG, Qual POSITIVE PD MEDICAL DECISION MAKING - ED course Complexity details: reviewed old records, reviewed results, re-evaluated patient , considered differential, d/w patient, d/w family ED course: Patient was seen and examined at bedside. Patient's urine was collected and sent and pelvic exam was performed. patient's findings were consistent with yeast infection. Patient had a few bacteria in her urine so was started on macrobid. Patient denied abdominal pain or vaginal bleeding. Patient was stable for discharge with outpatient follow up. Departure - Departure Disposition: 01 Home, Self Care Clinical Impression: Yeast infection Condition: Good Instructions: ED Vaginal Infec Fungal [place] Follow-Up: primary,care provider [Other] - Within 3 Days Prescriptions: Nitrofurantoin Monohyd/M-Cryst [Macrobid 100 mg Capsule] 100 mg PO BID 5 Days capsule Comments: Your symptoms today are being caused by a yeast infection. Since you are you can only use the topical medications. They are available over the counter. You have been prescribed macrobid for a few bacteria in your urine. You should stay well hydrated and go to the appointment with your doctor next week. You will be called if there are abnormalities on your culture results. Discharge Date/Time: 05/20/17 02:54
[2017-05-20 02:54] VITALS: BP 122/78
== END 2017-05-20 02:54 | disposition home or self-care (01) ==
LOC: ED 00:58
DX: O98.811 Other maternal infectious and parasitic diseases complicating pregnancy, first trimester (principal); B37.3 Candidiasis of vulva and vagina; Z3A.10 10 weeks gestation of pregnancy
CPT/HCPCS: 81001; 81003; 81025; 87086; 87210; 87491; 87591; 99283

== ENCOUNTER 2017-08-08 01:49 | Outpatient (CLI) | payer OTHER ==
[2017-08-08] MEDS ORDERED: ACETAMINOPHEN 325 MG SUPP PR PRN (02:13)
[2017-08-08 02:30] LABS: BILIRUBIN,URINE NEGATIVE (NEGATIVE); GLUCOSE, URINE (UA) NEGATIVE (NEGATIVE); KETONES,URINE (UA) NEGATIVE (NEGATIVE); LEUKOCYTE ESTERASE, URINE SMALL (NEGATIVE); NITRITE,URINE NEGATIVE (NEGATIVE); OCCULT BLOOD,URINE NEGATIVE (NEGATIVE); PH,URINE 6.5 PH (5.0-7.5); PROTEIN,URINE NEGATIVE (NEGATIVE); UROBILINOGEN,URINE 0.2 (NORMAL) E.U./dL (NORMAL)
[2017-08-08 02:37] LABS: CLARITY,URINE CLEAR (CLEAR); RBC,URINE 0-5 /HPF (0-5); SQUAMOUS EPITHELIAL CELL,UR MOD Squamous (<= Few)
[2017-08-08 02:38] LABS: BACTERIA,URINE Few /HPF (None Seen)
[2017-08-08 02:39] VITALS: BP 112/84
[2017-08-08] MEDS ORDERED: ACETAMINOPHEN 325 MG TABLET PO ONE (02:57)
== END 2017-08-08 03:30 | disposition home or self-care (01) ==
LOC: WFO 01:49 → FBP 01:51 → WFO 03:30
PROVIDERS: ATTEND Obstetrics & Gynecology
DX: O99.89 Other specified diseases and conditions complicating pregnancy, childbirth and the puerperium (principal); M54.9 Dorsalgia, unspecified; R51 Headache; R11.0 Nausea; Z3A.20 20 weeks gestation of pregnancy
CPT/HCPCS: 81001; 99213; A9270; 87086

== ENCOUNTER 2017-09-04 16:38 | Outpatient (CLI) | payer OTHER ==
[2017-09-04 18:18] LABS: ALBUMIN 3.2 g/dL (3.2-5.5); ALKALINE PHOSPHATASE 44 IU/L (42-121); ALT ALANINE AMINOTRANSFERASE < 10 IU/L (10-60); AST ASPARTATE AMINOTRANSFERASE 13 IU/L (10-42); BILIRUBIN,DIRECT 0.1 mg/dL (0.1-0.5); BILIRUBIN,TOTAL 0.6 mg/dL (0.2-1.0); TOTAL PROTEIN 6.9 g/dL (6.7-8.2)
[2017-09-04] MEDS ORDERED: LACTATED RINGERS 1,000 ML IV ONE (18:30)
[2017-09-04 18:46] LABS: BILIRUBIN,URINE NEGATIVE (NEGATIVE); GLUCOSE, URINE (UA) NEGATIVE (NEGATIVE); KETONES,URINE (UA) TRACE mg/dL (NEGATIVE); LEUKOCYTE ESTERASE, URINE NEGATIVE (NEGATIVE); NITRITE,URINE NEGATIVE (NEGATIVE); OCCULT BLOOD,URINE NEGATIVE (NEGATIVE); PROTEIN,URINE TRACE mg/dL (NEGATIVE); UROBILINOGEN,URINE 1 (NORMAL) E.U./dL (NORMAL)
[2017-09-04] MEDS ORDERED: SODIUM CHLORIDE FLUSH 0.9% 10 ML SYRINGE ONE (18:49)
[2017-09-04 19:00] LABS: BACTERIA,URINE None Seen /HPF (None Seen); CLARITY,URINE CLEAR (CLEAR); RBC,URINE None Seen /HPF (0-5); SQUAMOUS EPITHELIAL CELL,UR MANY Squamous (<= Few)
[2017-09-04] MEDS ORDERED: LACTATED RINGERS 1,000 ML IV SCH (19:00)
[2017-09-04 20:33] VITALS: BP 108/62
[2017-09-04] MEDS ORDERED: MORPHINE 10 MG/ML VIAL IM STA (21:39)
--- NOTE | 2017-09-04 21:55 | Ultrasound Report ---
Procedure Date: 09/04/2017 Accession Number: [id number] / [id number] Procedure: US - OB Transvaginal CPT Code: FULL RESULT: EXAM: FOLLOW-UP OBSTETRICAL ULTRASOUND EXAM DATE: 09/04/2017 08:15 PM. CLINICAL HISTORY: Cramping. COMPARISON: None. TECHNIQUE: Real-time sonographic evaluation of the fetus performed by the aircraft engine assembler. Transvaginal exam only. Multiple computer help desk representative static images were saved for review. DATING: Established EGA 25 weeks 5 days with BREANNE 12/13/2017 based on provided dating. GENERAL EVALUATION Bryant . Cardiac activity: 150 bpm. movement: Visualized. Presentation: Breech Placenta: Posterior position. No evidence of previa. Amniotic fluid: Subjectively normal. BIOMETRY Not performed. ANATOMY Not assessed. No gross abnormality on submitted images. Three-vessel cord demonstrated. MATERNAL STRUCTURES Transvaginal cervical length 3.2 cm. Cervix is long and closed. IMPRESSION: 1. Bryant live intrauterine in breech presentation with gestational age 25 weeks 5 days based on provided dating. 2. Closed cervix. Transvaginal cervical length 3.2 cm. RADIA
--- NOTE | 2017-09-04 23:26 | HISTORY & PHYSICAL EXAMINATION ---
DATE OF SERVICE: 09/04/2017 Physician: Mehdi Lomax MD DIAGNOSES 1. A 25-week 5-day gestation, uterine contractions, not labor. 2. Cholestasis in . 3. History of herpes simplex virus 2. 4. Iron deficiency anemia. 5. Maternal Rh negative status. 6. History of hyperemesis. HISTORY OF PRESENT ILLNESS: Patient is a 21-year-old 3, para 2 woman who receives her normal care at the [facility], predominantly Dr. Stroud. Today, she reported regular uterine contractions with pelvic pressure that began at 1300 hours. She has been nauseous for the last few days and has not been able to keep down fluids or food. She reports concentrated urine that is brownish without blood streaking. She has no dysuria or flank pain. There is no suspicion of ruptured membranes. She has no fevers, chills, or recent illness. She does admit to anxiety disorder. This has been complicated with cholestasis. Bile acid level 4.1 on . Today, she reports pruritus of the soles and palms. She denies icterus, history of hepatitis, or alcohol abuse. PAST MEDICAL HISTORY: Active young mother without chronic disease history. PAST SURGICAL HISTORY: Appendectomy. ALLERGIES: PEANUTS; NO KNOWN DRUG ALLERGIES. MEDICATIONS 1. Epifoam. 2. Fluconazole. 3. Witch nohemy. PHYSICAL EXAMINATION GENERAL: Well groomed, pleasant, slender, obviously anxious. HEENT: EOMI, nonicteric sclerae, dry mucous membranes. NECK: Supple. No thyromegaly. LUNGS: Clear to auscultation. CARDIAC: Regular. No murmur, no gallop. ABDOMEN: No epigastric or right upper quadrant tenderness. No flank tenderness. No bladder tenderness. UTERUS: Appropriate size for dates, 24 cm. Normal resting tone. No true contractions, mostly irritability. EXTERNAL GENITALIA: Shaven, no evident lesions. VAGINA: No blood or discharge. CERVIX: Closed, 25% effaced, posterior -2 station. fibronectin test negative. strip, initially contractions every 3-4 minutes. By palpation, it did not seem significant. Heart rate 120-130, difficult to get extended tracing because of movement. EXTREMITIES: Nonedematous, normal range of motion. NEUROLOGIC: Grossly intact. Patellar reflexes normal. LABORATORY DATA: Total bilirubin 0.6, direct 0.1. AST normal 13, ALT low at 10 , alkaline phosphatase 44, total protein 6.9, albumin 3.2, globulin 3.2. Urine normal, clear, very concentrated at 1.030, trace protein, no blood. fibronectin negative. Bile acid salt level pending. US Cervical Length = 3. ASSESSMENT: The patient has uterine contractions that are of insufficient intensity to affect cervical change, but strong enough to trigger the patient's anxiety. There is no evidence of any infection. The patient reports a baseline nausea that is attributed to hyperemesis, but may relate to her cholestasis. No alarming findings associated with the cholestasis such as icterus, marked bile salt elevation or concerning EFM strip changes. We began therapy by bolusing her with a liter of IV fluid, which effectively knocked out her contractions. Her fibronectin is negative and, therefore, possibility of delivery in the next week is not likely. I attempted to give the patient reassurance; however, her anxiety remained. PLAN: The patient is safe to be discharged home. She was given morphine 10 mg IM for therapeutic rest. She is instructed to follow up at the [facility]. Additionally, if she notes strengthening contractions, leakage of fluid or abdominal pain, she is to call [place] first and if necessary come back to [facility]. TD: 09/04/2017 21:33 VALDEMAR
== END 2017-09-04 22:20 | disposition home or self-care (01) ==
LOC: WFO 16:38 → FBP 16:39 → WFO 22:20
PROVIDERS: ATTEND Obstetrics & Gynecology
DX: O47.02 False labor before 37 completed weeks of gestation, second trimester (principal); O26.612 Liver and biliary tract disorders in pregnancy, second trimester; K83.1 Obstruction of bile duct; O36.8120 Decreased fetal movements, second trimester, not applicable or unspecified; Z3A.25 25 weeks gestation of pregnancy; O99.342 Other mental disorders complicating pregnancy, second trimester; F41.9 Anxiety disorder, unspecified; O21.0 Mild hyperemesis gravidarum; Z86.19 Personal history of other infectious and parasitic diseases; O99.012 Anemia complicating pregnancy, second trimester; D50.9 Iron deficiency anemia, unspecified; O26.893 Other specified pregnancy related conditions, third trimester; Z67.91 Unspecified blood type, Rh negative
CPT/HCPCS: 36415; 76817; 80076; 81001; 82239; 82731; 96372; 99214; J7120; 87086

== ENCOUNTER 2017-11-19 12:01 | Outpatient (CLI) | payer OTHER ==
[2017-11-19 12:21] VITALS: BP 108/58
== END 2017-11-19 13:30 | disposition home or self-care (01) ==
LOC: WFO 12:01 → FBP 12:03 → WFO 13:30
PROVIDERS: ATTEND Obstetrics & Gynecology
DX: O99.89 Other specified diseases and conditions complicating pregnancy, childbirth and the puerperium (principal); M54.9 Dorsalgia, unspecified; Z3A.36 36 weeks gestation of pregnancy
CPT/HCPCS: 99212

== ENCOUNTER 2017-12-27 22:27 | Emergency (ER) | payer OTHER ==
[2017-12-27] MEDS ORDERED: DEXAMETHASONE 10 MG/ML VIAL IM STA (23:23)
[2017-12-27] MEDS ORDERED: MAG HYDROX/AL HYDROX/SIMETH 30 ML UDC PO STA (23:23)
[2017-12-27] MEDS ORDERED: LIDOCAINE VISCOUS 2% 15 ML UDC MM STA (23:23)
[2017-12-27] MEDS ORDERED: HYDROcod/ACET 5/325 Prepack 4 PO STA (23:23)
--- NOTE | 2017-12-27 23:29 | ED Physician Documentation ---
PD HPI BACK PAIN - Stated complaint Stated Complaint: LOW BACK/MIDDLE TORSO PX - Chief complaint Chief Complaint: Back Pain - History obtained from History obtained from: Patient, Family - History of Present Illness Timing - onset: How many weeks ago (2) Timing - duration: Weeks (2) Timing - details: Abrupt onset, Still present Location: Lower Quality: Pain, Sharp Associated symptoms: No: Fever, Weakness, Numbness, Incontinent of urine, Unable to urinate, Hematuria, Incontinent of stool Improves with: Rest Worsened by: Movement, Twisting, Palpation Contributing factors: Other (recent rapid delivery and pain after in the sacrum and coccxy) Similar symptoms before: Diagnosis (sacroilliac pain) Recently seen: Other - Additional information Additional information: 22-year-old female who has had 2 babies within 9 months of each other and she is now developed sacroiliac pain. She had this right at the time of delivery and this is persisted. She also notes some epigastric pain and she notes that she has been taking ibuprofen and when questioned she has not taking this with food. Review of Systems Constitutional: denies: Fever Eyes: denies: Decreased vision Ears: denies: Ear pain Nose: denies: Rhinorrhea / runny nose, Congestion Throat: denies: Sore throat Cardiac: denies: Chest pain / pressure, Palpitations Respiratory: denies: Dyspnea, Cough GI: reports: Abdominal Pain, Nausea, Vomiting : denies: Dysuria, Frequency Skin: denies: Rash Musculoskeletal: reports: Back pain. 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 : None HEENT: None Psych: None Musculoskeletal: None Derm: None - Past Surgical History Past Surgical History: Yes General: Appendectomy - Present Medications Home Medications: Ambulatory Orders Medication Instructions Recorded Confirmed Ibuprofen 1 tab PO Q8HR PRN 12/27/17 12/27/17 Hydrocodone/Acetaminophen 1 - 2 each PO Q6H PRN #14 tablet 12/28/17 [Hydrocodon-Acetaminophen 5-325] - Allergies Allergies/Adverse Reactions: Allergies Allergy/AdvReac Type Severity Reaction Status Date / Time peanut Allergy Unknown Verified 12/27/17 22:33 all nuts Allergy Unknown Uncoded 12/27/17 22:33 - Social History Does the pt smoke?: No Smoking Status: Never smoker Does the pt drink ETOH?: No Does the pt have substance abuse?: No - Immunizations Immunizations are current?: Yes - POLST Patient has POLST: No PD ED PE NORMAL - Vitals Vital signs reviewed: Yes (hypertensive ) - General General: Alert and oriented X 3, No acute distress, Well developed/nourished - HEENT HEENT: Atraumatic, PERRL, EOMI - Neck Neck: Supple, no meningeal sign - Cardiac Cardiac: RRR, No murmur - Respiratory Respiratory: No respiratory distress, Clear bilaterally - Abdomen Abdomen: Soft, Other (epigastric tenderness reproducible and specific ) - Back Back: No CVA TTP, No spinal TTP, Other (There is pain to palpation along the sacroilliac joints bilaterally and to the coccyx itself ) - Derm Derm: Normal color, Warm and dry, No rash - Extremities Extremities: No deformity, No edema - Neuro Neuro: Alert and oriented X 3, supervisor contingents 2-12 intact, No motor deficit, No sensory deficit, Normal speech Eye Opening: Spontaneous Motor: Obeys Commands Verbal: Oriented GCS Score: 15 - Psych Psych: Normal mood, Normal affect Results - Vitals Vitals: Vital Signs - 24 hr 12/27/17 12/27/17 22:30 23:57 Heart Rate 76 82 Respiratory 18 16 Rate Blood Pressure 127/82 H 123/85 H O2 Saturation 100 100 Oxygen O2 Source Room air PD MEDICAL DECISION MAKING - ED course Complexity details: reviewed results, re-evaluated patient, considered differential, d/w patient, d/w family ED course: 22-year-old female with sacroiliac pain after a precipitous delivery 2 weeks ago has persistence of her pain and this is not being relieved with use of ibuprofen. She has been taking ibuprofen on an empty stomach and here in the emergency department we have administered viscous lidocaine Mylanta with resolution of her epigastric pain. I have asked her to stop using the ibuprofen and we will provide some pain relief with some narcotic pain reliever for a brief period of time. In addition she is administered dexamethasone 10 mg IM. Departure - Departure Disposition: 01 Home, Self Care Clinical Impression: Sacroiliac joint pain, Gastritis due to nonsteroidal anti-inflammatory drug Condition: Stable Instructions: ED PUD Vs Gastritis, ED Sacroiliitis Follow-Up: ARIANNE ESCOBAR [Primary Care Provider] - Prescriptions: Hydrocodone/Acetaminophen [Hydrocodon-Acetaminophen 5-325] 1 - 2 each PO Q6H PRN #14 tablet PRN Reason: pain Comments: Today it appears you have two things going on. The sacral iliac pain is likely related to the trauma of 2 weeks ago. This should resolve in the next month. We have given you a dose of dexamethasone which may help over the next day. In addition it appears you have had some gastritis or duodenitis related to the use of ibuprofen. My recommendation is you stop the ibuprofen and take some Pepcid AC daily for at least 10 days.
[2017-12-28] MEDS ORDERED: MAG HYDROX/AL HYDROX/SIMETH 30 ML UDC PO STA (00:19)
[2017-12-28] MEDS ORDERED: FAMOTIDINE 20 MG TABLET PO STA (00:44)
[2017-12-28 01:15] VITALS: BP 130/84
== END 2017-12-28 01:20 | disposition home or self-care (01) ==
LOC: ED 22:27
DX: M53.3 Sacrococcygeal disorders, not elsewhere classified (principal); K29.00 Acute gastritis without bleeding; T39.315A Adverse effect of propionic acid derivatives, initial encounter
CPT/HCPCS: 96372; 99283; A9270

== ENCOUNTER 2018-02-14 01:42 | Outpatient (CLI) | payer OTHER | END 2018-02-14 01:43 | disposition critical access hospital (66) | LOC: EMS 01:42 | PROVIDERS: ATTEND Surgery | DX: R46.4 Slowness and poor responsiveness (principal) | CPT/HCPCS: A0425; A0427 ==

== ENCOUNTER 2018-02-14 01:57 | Emergency (ER) | payer OTHER ==
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
[2018-02-14] MEDS ORDERED: SODIUM CHLORIDE 0.9% 1,000 ML IV ONE (02:51)
[2018-02-14] MEDS ORDERED: KETOROLAC 15 MG/ML VIAL IVP STA (02:51)
[2018-02-14] MEDS ORDERED: ACETAMINOPHEN 1,000 MG/100 ML 100 ML IV STA (02:53)
[2018-02-14 03:52] VITALS: BP 112/75
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
== END 2018-02-14 04:26 | disposition home or self-care (01) ==
LOC: EDUNIT# → ED 01:57
DX: M54.2 Cervicalgia (principal); S50.01XA Contusion of right elbow, initial encounter; S70.02XA Contusion of left hip, initial encounter; S00.83XA Contusion of other part of head, initial encounter; Y04.0XXA Assault by unarmed brawl or fight, initial encounter
CPT/HCPCS: 70450; 72125; 73080; 73502; 96361; 96365; 96375; 99283; J0131